=== PATIENT | female | born 2000 ===

== ENCOUNTER 2020-08-29 18:19 | Inpatient (IN) | payer MEDICAID ==
[2020-08-29] MEDS ORDERED: ONDANSETRON 4 MG/2 ML INJ IM ONE (19:36)
[2020-08-29] MEDS ORDERED: FAMOTIDINE 20 MG TAB PO ONE (19:37)
[2020-08-29] MEDS ORDERED: ALUM-MAG HYDROXIDE-SIMETHICONE 200-200-20MG/5ML ORAL LIQD 30 ML PO ONE (19:37)
[2020-08-29] MEDS ORDERED: HYOSCYAMINE SUBL 0.125 MG TAB SL ONE (20:09)
[2020-08-29] MEDS ORDERED: SODIUM CHLORIDE 0.9% 1000 ML 1,000 ML IV ONE (20:28)
[2020-08-29 20:48] LABS: Hematocrit 41.5 % (30.3-42.9); Hemoglobin 13.9 gm/dl (10.1-14.3); Mean Corpuscular HGB Conc 34 % (30-34); Mean Corpuscular Volume 88 fl (79-97); Platelet Count 368 K/mm3 (140-440); Red Blood Count 4.71 M/mm3 (3.65-5.03); Red Cell Distribution Width 14.1 % (13.2-15.2)
[2020-08-29] MEDS ORDERED: MORPHINE 4 MG/1 ML INJ ONE (21:00)
[2020-08-29] MEDS ORDERED: MORPHINE 4 MG/1 ML INJ IV ONE (21:00)
[2020-08-29 21:07] LABS: Alanine Aminotransferase 13 units/L (7-56); Albumin 4.7 g/dL (3.9-5); Blood Urea Nitrogen 9 mg/dL (7-17); Calcium 9.2 mg/dL (8.4-10.2); Hemolysis Index 8
[2020-08-29 21:10] LABS: BUN/Creatinine Ratio 15
--- NOTE | 2020-08-29 22:16 | Emergency Department Report ---
ED Abdominal Pain HPI - General Chief Complaint: Abdominal Pain Stated Complaint: ABD PAIN Time Seen by Provider: 08/29/20 19:36 Source: patient Mode of arrival: Ambulatory Limitations: No Limitations - History of Present Illness Initial Comments: pt is a 19 yo female who presents to the ED with c/o epigastric abd pain that began at 8 AM this morning. she has associated n/v. she states she has had multiple episodes of vomiting. she states she also has a burning sensation in her epigastric region. she states she had a normal BM today. she denies any fever, diarrhea, urinary symptoms, abnormal vaginal discharge. pmhx none. no allergies to meds. Severity scale (0 -10): 1 - Related Data Allergies Allergy/AdvReac Type Severity Reaction Status Date / Time No Known Allergies Allergy Unverified 08/29/20 20:48 ED Review of Systems ROS: Stated complaint: ABD PAIN Other details as noted in HPI ED Past Medical Hx - Past Medical History Previous Medical History?: Yes Hx Asthma: Yes Additional medical history: Obesity. Genital Herpes - Surgical History Past Surgical History?: Yes Additional Surgical History: Tonsiletomy - Social History Smoking Status: Never Smoker Substance Use Type: Marijuana ED Physical Exam - General Limitations: No Limitations ED Course Vital Signs 08/29/20 08/29/20 08/29/20 19:31 22:35 22:52 Temperature 98.5 F 98.1 F Pulse Rate 69 70 70 Respiratory 18 18 17 Rate Blood Pressure 135/94 134/81 Blood Pressure 134/81 [Left] O2 Sat by Pulse 100 100 100 Oximetry - Consultations Consultation #1: 08/30/20 23:[address] Walker, general surgery, advised to give patient Levaquin or Zosyn, advised to make n.p.o. and he will consult on patient 08/30/20 23:[address] Lambert, hospitalist will accept and resume care of patient, will admit patient to hospital service, advised to bridge patient to the surgical unit ED Medical Decision Making - Lab Data Result diagrams: 08/29/20 19:36 08/29/20 20:28 Lab Results 08/29/20 08/29/20 08/29/20 Range/Units 19:36 20:28 20:31 WBC 17.5 H (4.5-11.0) K/mm3 RBC 4.71 (3.65-5.03) M/mm3 Hgb 13.9 (10.1-14.3) gm/dl Hct 41.5 (30.3-42.9) % MCV 88 (79-97) fl MCH 30 (28-32) pg MCHC 34 (30-34) % RDW 14.1 (13.2-15.2) % Plt Count 368 (140-440) K/mm3 Add Manual Diff Complete Total Counted 100 Seg Neutrophils % Service Employee Lymphocytes % (Manual) 3.0 L (13.4-35.0) % Monocytes % (Manual) 2.0 (0.0-7.3) % Nucleated RBC % Not Reportable Seg Neutrophils # Man 16.6 H (1.8-7.7) K/mm3 Band Neutrophils # 0.0 K/mm3 Lymphocytes # (Manual) 0.5 L (1.2-5.4) K/mm3 Abs React Lymphs (Man) 0.0 K/mm3 Monocytes # (Manual) 0.4 (0.0-0.8) K/mm3 Eosinophils # (Manual) 0.0 (0.0-0.4) K/mm3 Basophils # (Manual) 0.0 (0.0-0.1) K/mm3 Metamyelocytes # 0.0 K/mm3 Myelocytes # 0.0 K/mm3 Promyelocytes # 0.0 K/mm3 Blast Cells # 0.0 K/mm3 WBC Morphology Not Reportable Hypersegmented Neuts Not Reportable Hyposegmented Neuts Not Reportable Hypogranular Neuts Not Reportable Smudge Cells Not Reportable Toxic Granulation Not Reportable Toxic Vacuolation Not Reportable Dohle Bodies Not Reportable Pelger-Huet Anomaly Not Reportable Tristan Rods Not Reportable Platelet Estimate Consistent w auto Clumped Platelets Not Reportable Plt Clumps, EDTA Not Reportable Large Platelets Not Reportable Giant Platelets Not Reportable Platelet Satelliting Not Reportable Plt Morphology Comment Not Reportable RBC Morphology Normal Dimorphic RBCs Not Reportable Polychromasia Not Reportable Hypochromasia Not Reportable Poikilocytosis Not Reportable Anisocytosis Not Reportable Microcytosis Not Reportable Macrocytosis Not Reportable Spherocytes Not Reportable Pappenheimer Bodies Not Reportable Sickle Cells Not Reportable Target Cells Not Reportable Tear Drop Cells Not Reportable Ovalocytes Not Reportable Helmet Cells Not Reportable [place] Bodies Not Reportable [place] Rings Not Reportable [place] Cells Not Reportable Bite Cells Not Reportable Crenated Cell Not Reportable Elliptocytes Not Reportable Acanthocytes (Spur) Not Reportable Rouleaux Not Reportable Hemoglobin C Crystals Not Reportable Schistocytes Not Reportable Malaria parasites Not Reportable Anand Bodies Not Reportable Hem Pathologist Commnt No Sodium 136 L (137-145) mmol/L Potassium 3.7 (3.6-5.0) mmol/L Chloride 102.1 (98-107) mmol/L Carbon Dioxide 23 (22-30) mmol/L Anion Gap 15 mmol/L BUN 9 (7-17) mg/dL Creatinine 0.6 (0.6-1.2) mg/dL Estimated GFR > 60 ml/min BUN/Creatinine Ratio 15 % Glucose 122 H (65-100) mg/dL Calcium 9.2 (8.4-10.2) mg/dL Total Bilirubin 0.50 (0.1-1.2) mg/dL AST 15 (5-40) units/L ALT 13 (7-56) units/L Alkaline Phosphatase 100 (35-129) units/L Total Protein 7.5 (6.3-8.2) g/dL Albumin 4.7 (3.9-5) g/dL Albumin/Globulin Ratio 1.7 % Lipase 16 (13-60) units/L HCG, Qual Negative (Negative) - Radiology Data Radiology results: report reviewed Ordering Physician: ANGELLA STATON Date of Service: 08/29/20 Procedure(s): CT abdomen pelvis w con Accession Number(s): [id number] cc: ANGELLA STATON CT ABDOMEN AND PELVIS WITH CONTRAST INDICATION / CLINICAL INFORMATION: epigastric abd pain, n/v, leukocytosis. TECHNIQUE: Axial CT images were obtained through the abdomen and pelvis after 100 cc of Omnipaque [address] scans at this location are performed using CT dose reduction for ALARA by means of automated exposure control. COMPARISON: None available. FINDINGS: LOWER CHEST: No significant abnormality. LIVER: No significant abnormality. GALLBLADDER: No significant abnormality. BILE DUCTS: No significant abnormality. PANCREAS: No significant abnormality. SPLEEN: No significant abnormality. ADRENALS: No significant abnormality. RIGHT KIDNEY and URETER: No significant abnormality. LEFT KIDNEY and URETER: No significant abnormality. STOMACH and SMALL BOWEL: No significant abnormality. COLON: There is wall thickening in the colon. APPENDIX: The appendix is abnormal in appearance. The appendix is enlarged and fluid-filled and there is an appendicolith. There is mild periappendiceal inflammation. Findings are characteristic of appendicitis. PERITONEUM: No free fluid. No free air. No fluid collection. LYMPH NODES: No significant adenopathy. AORTA and ARTERIES: No significant abnormality. IVC and VEINS: No significant abnormality. URINARY BLADDER: No significant abnormality. REPRODUCTIVE ORGANS: No significant abnormality. ADDITIONAL FINDINGS: None. SKELETAL SYSTEM: No acute abnormality. IMPRESSION: 1. The appendix is abnormal in appearance. It is enlarged and fluid-filled and there are appendicoliths. There is some mild stranding in the fat adjacent to the appendix. The appearance is characteristic of appendicitis. 2. In addition, there is wall thickening noted in the right transverse left proximal sigmoid colon suggesting colitis. Signer Name: Luis Fernando Benton MD Signed: 08/29/2020 10:35 PM Workstation Name: [id number] Transcribed By: SS Dictated By: Luis Fernando Benton MD Electronically Authenticated By: Luis Fernando Benton MD Signed Date/Time: 08/29/202234 DD/ 29 TD/TT: - Medical Decision Making pt is a 19 yo female who presents to the ED with c/o epigastric abd pain that began at 8 AM this morning. she has associated n/v. she states she has had multiple episodes of vomiting. she states she also has a burning sensation in her epigastric region. she states she had a normal BM today. she denies any fever, diarrhea, urinary symptoms, abnormal vaginal discharge. pmhx none. no allergies to meds. Vitals are normal. On exam patient has epigastric tenderness palpation. Labs show elevated white blood cell count at 17,000. CT abdomen pelvis with IV contrast: 1. The appendix is abnormal in appearance. It is enlarged and fluid-filled and there are appendicoliths. There is some mild stranding in the fat adjacent to the appendix. The appearance is characteristic of appendicitis. 2. In addition, there is wall thickening noted in the right transverse left proximal sigmoid colon suggesting colitis. Patient given morphine for pain but began having pain again, patient given IV Dilaudid and pain has significantly improved. Originally pain was just in the epigastric region, now she is also having tenderness to palpation in the bilateral lower quadrants. Spoke with Dr. Walker, general surgery, advised to give patient Levaquin or Zosyn, advised to make n.p.o. and he will consult on patient. Discussed case with Dr. Lambert, hospitalist will accept and resume care of patient, will admit patient to hospital service, advised to bridge patient to the surgical unit. Dr. Dalal, ER attending agreeable with plan. pt given IV zosyn and admitted. - Differential Diagnosis Pancreatitis, cholecystitis, cholelithiasis, PUD, GERD, colitis, obstructio Critical care attestation.: If time is entered above; I have spent that time in minutes in the direct care of this critically ill patient, excluding procedure time. ED Disposition Clinical Impression: Colitis Abdominal pain Qualifiers: Abdominal location: epigastric Qualified Code(s): R10.13 - Epigastric pain Nausea & vomiting Qualifiers: Vomiting type: unspecified Vomiting Intractability: non-intractable Qualified Code(s): R11.2 - Nausea with vomiting, unspecified Leukocytosis Qualifiers: Leukocytosis type: unspecified Qualified Code(s): D72.829 - Elevated white blood cell count, unspecified Appendicitis Qualifiers: Appendicitis type: acute appendicitis Acute appendicitis type: with localized peritonitis Appendicitis gangrene presence: without gangrene Appendicitis perforation presence: without perforation Appendicitis abscess presence: without abscess Qualified Code(s): K35.30 - Acute appendicitis with localized peritonitis, without perforation or gangrene Disposition: OP ADMIT IP TO THIS HOSP Is pt being admited?: Yes Does the pt Need Aspirin: No Condition: Fair Time of Disposition: 23:22
--- NOTE | 2020-08-29 22:40 | Cat Scan Report ---
CT ABDOMEN AND PELVIS WITH CONTRAST INDICATION / CLINICAL INFORMATION: epigastric abd pain, n/v, leukocytosis. TECHNIQUE: Axial CT images were obtained through the abdomen and pelvis after 100 cc of Omnipaque [address] scans at this location are performed using CT dose reduction for ALARA by means of automat ed exposure control. COMPARISON: None available. FINDINGS: LOWER CHEST: No significant abnormality. LIVER: No significant abnormality. GALLBLADDER: No significant abnormality. BILE DUCTS: No significant abnormality. PANCREAS: No significant abnormality. SPLEEN: No significant abnormality. ADRENALS: No significant abnormality. RIGHT KIDNEY and URETER: No significant abnormality. LEFT KIDNEY and URETER: No significant abnormality. STOMACH and SMALL BOWEL: No significant abnormality. COLON: There is wall thickening in the colon. APPENDIX: The appendix is abnormal in appearance. The appendix is enlarged and fluid-filled and there is an appendicolith. There is mild periappendiceal inflammation. Findings are characteristic of appe ndicitis. PERITONEUM: No free fluid. No free air. No fluid collection. LYMPH NODES: No significant adenopathy. AORTA and ARTERIES: No significant abnormality. IVC and VEINS: No significant abnormality. URINARY BLADDER: No significant abnormality. REPRODUCTIVE ORGANS: No significant abnormality. ADDITIONAL FINDINGS: None. SKELETAL SYSTEM: No acute abnormality. IMPRESSION: 1. The appendix is abnormal in appearance. It is enlarged and fluid-filled and there are appendicolit hs. There is some mild stranding in the fat adjacent to the appendix. The appearance is characteristi c of appendicitis. 2. In addition, there is wall thickening noted in the right transverse left proximal sigmoid colon orellana ggesting colitis. Signer Name: Luis Fernando Benton MD Signed: 08/29/2020 10:35 PM Workstation Name: [id number]
[2020-08-29 22:48] LABS: Total Cells Counted 100
[2020-08-29 22:49] LABS: Platelet Estimate Consistent w Auto; RBC Morphology Normal
[2020-08-29] MEDS ORDERED: PIPERACIL/TAZOBACTA 4.5/NS 100 4.5 GM/100 ML VIAL IV ONE (22:51)
[2020-08-29] MEDS ORDERED: HYDROmorphone 1 MG/1 ML INJ ONE (22:55)
[2020-08-29] MEDS ORDERED: HYDROmorphone 1 MG/1 ML INJ IV ONE (22:58)
[2020-08-30] MEDS ORDERED: ACETAMINOPHEN 325 MG TAB PO PRN (00:27)
[2020-08-30] MEDS ORDERED: ONDANSETRON 4 MG/2 ML INJ IV PRN (00:27)
--- NOTE | 2020-08-30 00:36 | History and Physical Report ---
History of Present Illness Date of examination: 08/29/20 Date of admission: 08/29/20 23:23 Chief complaint: Abdominal Pain History of present illness: 19 year old while female seen in the ER complaining of abdominal pain. Abdominal pain was said to have started early this morning. Pain was more in the epigastric region initially and later radiated to the right lower abdomen. No known relieving or exacerbating factor. She denies any fever, no chills.No chest pain or shortness of breath. Denies any hematuria and dysuria. Work -up in the Emergency room :The appendix is abnormal in appearance. It is enlarged and fluid-filled and there are appendicoliths. There is some mild stranding in the fat adjacent to the appendix. The appearance is characteristic of appendicitis. In addition, there is wall thickening noted in the right transverse left proximal sigmoid colon suggesting colitis. Labs reveals leucocytosis of 17.5 Patient is being admitted for appendicitis . General surgeon - Dr. Walker was notified by the ER physician. Past History Past Medical History: other (Asthma, H/O Genital herpes) Past Surgical History: No surgical history Social history: other (Smokes Marijuana Occasionally) Family history: no significant family history Medications and Allergies Allergies Allergy/AdvReac Type Severity Reaction Status Date / Time No Known Allergies Allergy Unverified 08/29/20 20:48 Home Medications Medication Instructions Recorded Confirmed Last Taken Type No Known Home Medications [No 08/30/20 08/30/20 Unknown History Reported Home Medications] Active Meds: Active Medications Acetaminophen (Acetaminophen 325 Mg Tab) 650 mg PO Q4H PRN PRN Reason: Pain MILD(1-3)/Fever >100.5/SKAGGS Ondansetron HCl (Ondansetron 4 Mg/2 Ml Inj) 4 mg IV Q8H PRN PRN Reason: Nausea And Vomiting Sodium Chloride (Sodium Chloride 0.9% 10 Ml Flush Syringe) 10 ml IV BID ALICIA Sodium Chloride (Sodium Chloride 0.9% 10 Ml Flush Syringe) 10 ml IV PRN PRN PRN Reason: LINE FLUSH Review of Systems Constitutional: no fever, no chills Ears, nose, mouth and throat: no nasal congestion, no sore throat Cardiovascular: no chest pain, no palpitations Respiratory: no cough, no shortness of breath Gastrointestinal: abdominal pain, nausea, vomiting, no hematemesis Genitourinary Female: no pelvic pain, no flank pain, no dysuria, no hematuria Musculoskeletal: no neck pain, no low back pain Integumentary: no rash, no pruritis Neurological: no headaches, no confusion Psychiatric: no anxiety, no depression Exam - Constitutional Vitals: Temp Pulse Resp BP Pulse Ox 97.8 F 96 H 20 166/86 96 08/30/20 00:09 08/30/20 00:09 08/30/20 00:09 08/30/20 00:09 08/30/20 00:09 General appearance: Present: no acute distress, well-nourished, obese - EENT Eyes: Present: PERRL, EOM intact. Absent: scleral icterus ENT: hearing intact, clear oral mucosa, dentition normal - Neck Neck: Present: supple, normal ROM - Respiratory Respiratory effort: normal Respiratory: bilateral: CTA - Cardiovascular Rhythm: regular Heart Sounds: Present: S1 & S2. Absent: gallop, systolic murmur, diastolic murmur, rub, click - Extremities Extremities: no ischemia, pulses intact, pulses symmetrical, No edema, normal temperature, normal color, Full ROM Peripheral Pulses: within normal limits - Abdominal General gastrointestinal: Present: soft, tender (Right lower quadrant , Minimal guarding ,no rebound tenderness.), non-distended, normal bowel sounds. Absent: mass - Integumentary Integumentary: Present: clear, warm, dry. Absent: rash - Musculoskeletal Musculoskeletal: strength equal bilaterally - Psychiatric Psychiatric: appropriate mood/affect, intact judgment & insight, memory intact, cooperative - Neurologic Neurologic: CNII-XII intact, no focal deficits, moves all extremities Results - Labs CBC & Chem 7: 08/29/20 19:36 08/29/20 20:28 Labs: Abnormal lab results 08/29/20 08/29/20 Range/Units 19:36 20:28 WBC 17.5 H (4.5-11.0) K/mm3 Lymphocytes % (Manual) 3.0 L (13.4-35.0) % Seg Neutrophils # Man 16.6 H (1.8-7.7) K/mm3 Lymphocytes # (Manual) 0.5 L (1.2-5.4) K/mm3 Sodium 136 L (137-145) mmol/L Glucose 122 H (65-100) mg/dL Assessment and Plan - Patient Problems (1) Appendicitis Current Visit: Yes Status: Acute Qualifiers: Appendicitis type: acute appendicitis Acute appendicitis type: with localized peritonitis Appendicitis gangrene presence: without gangrene Appendicitis perforation presence: without perforation Appendicitis abscess presence: without abscess Qualified Code(s): K35.30 - Acute appendicitis with localized peritonitis, without perforation or gangrene Plan to address problem: Patient made NPO . Placed on empiric IV antibiotics. Consult placed to General surgeon for evaluation. Dr.Ronald Walker notified. (2) Abdominal pain Current Visit: Yes Status: Acute Qualifiers: Abdominal location: epigastric Qualified Code(s): R10.13 - Epigastric pain Plan to address problem: Secondary to the Appendicits. Continue on IV analgesic medication (3) Nausea & vomiting Current Visit: Yes Status: Acute Qualifiers: Vomiting type: unspecified Vomiting Intractability: non-intractable Qualified Code(s): R11.2 - Nausea with vomiting, unspecified Plan to address problem: Patient placed on IV Zofran as needed. (4) DVT prophylaxis Current Visit: Yes Status: Acute Plan to address problem: Patient placed on sequential compression device (5) Full code status Current Visit: Yes Status: Acute Plan to address problem: Patient is Full code
[2020-08-30] MEDS: HYDROmorphone 1 MG/1 ML INJ IV PRN ×5 (00:54→20:51)
[2020-08-30] MEDS: SODIUM CHLORIDE 0.9% 1000 ML 1,000 ML IV SCH ×2 (01:04→17:54)
[2020-08-30] MEDS ORDERED: HYDROmorphone 1 MG/1 ML INJ IV ONE (01:29)
[2020-08-30] MEDS: HYDROmorphone 1 MG/1 ML INJ IV ONE ×2 (02:15→02:17)
[2020-08-30] MEDS ORDERED: LORazepam 2 MG/ML VIAL IV ONE (02:55)
[2020-08-30] MEDS: PIPERACIL/TAZOBACTA 4.5/NS 100 4.5 GM/100 ML VIAL IV SCH ×3 (05:50→22:00)
[2020-08-30] MEDS: ACETAMINOPHEN 325 MG TAB PO PRN ×2 (06:04→21:12)
--- NOTE | 2020-08-30 07:58 | Progress Note ---
Assessment and Plan Assessment and plan: (1) Appendicitis Current Visit: Yes Status: Acute Qualifiers: Appendicitis type: acute appendicitis Acute appendicitis type: with localized peritonitis Appendicitis gangrene presence: without gangrene Appendicitis perforation presence: without perforation Appendicitis abscess presence: without abscess Qualified Code(s): K35.30 - Acute appendicitis with localized peritonitis, without perforation or gangrene Plan to address problem: Patient made NPO . Placed on empiric IV antibiotics. Consult placed to General surgeon for evaluation. Dr.Ronald Walker notified. Sepsis due to appendicitis -Evidenced by fever, tachycardia and leukocytosis -Patient is on Zosyn (2) Abdominal pain Current Visit: Yes Status: Acute Qualifiers: Abdominal location: epigastric Qualified Code(s): R10.13 - Epigastric pain Plan to address problem: Secondary to the Appendicits. Continue on IV analgesic medication (3) Nausea & vomiting Current Visit: Yes Status: Acute Qualifiers: Vomiting type: unspecified Vomiting Intractability: non-intractable Qualified Code(s): R11.2 - Nausea with vomiting, unspecified Plan to address problem: Patient placed on IV Zofran as needed. (4) DVT prophylaxis Current Visit: Yes Status: Acute Plan to address problem: Patient placed on sequential compression device (5) Full code status Current Visit: Yes Status: Acute Plan to address problem: Patient is Full code 08/30/2020 -Patient is on IV Zosyn for appendicitis and sepsis -Dr. Walker consulted in the emergency department -We will going to follow with general surgery -Symptomatic treatment for abdominal pain nausea and vomiting, until definitive treatment by general surgery -Patient had appendectomy this morning by Dr. Walker and his note stated that patient has infected peritoneal fluid, culture and sensitivity sent to lab. History Interval history: Patient was seen and evaluated this morning Patient admitted for appendicitis Hospitalist Physical - Physical exam Narrative exam: Not in cardiopulmonary distress. The patient appeared well nourished and normally developed. Vital signs as documented. Head exam is unremarkable. No scleral icterus . Neck is without jugular venous distension, thyromegaly, or carotid bruits. Lungs are clear to auscultation. Cardiac exam reveals regular rate and Rhythm. Abdominal exam reveals right lower quadrant pain, no guarding or rigidity. Extremities are nonedematous and both femoral and pedal pulses are normal. 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 No focal weakness. - Constitutional Vitals: Temp Pulse Resp BP Pulse Ox 100.7 F H 129 H 18 120/50 99 08/30/20 04:43 08/30/20 04:43 08/30/20 04:43 08/30/20 04:43 08/30/20 04:43 General appearance: Present: no acute distress, well-nourished, obese Results - Labs CBC & Chem 7: 08/29/20 19:36 08/29/20 20:28 Labs: Laboratory Last Values WBC 17.5 K/mm3 (4.5-11.0) H 08/29/20 19:36 RBC 4.71 M/mm3 (3.65-5.03) 08/29/20 19:36 Hgb 13.9 gm/dl (10.1-14.3) 08/29/20 19:36 Hct 41.5 % (30.3-42.9) 08/29/20 19:36 MCV 88 fl (79-97) 08/29/20 19:36 MCH 30 pg (28-32) 08/29/20 19:36 MCHC 34 % (30-34) 08/29/20 19:36 RDW 14.1 % (13.2-15.2) 08/29/20 19:36 Plt Count 368 K/mm3 (140-440) 08/29/20 19:36 Add Manual Diff Complete 08/29/20 19:36 Total Counted 100 08/29/20 19:36 Seg Neutrophils % Batch Freezer 08/29/20 19:36 Lymphocytes % (Manual) 3.0 % (13.4-35.0) L 08/29/20 19:36 Monocytes % (Manual) 2.0 % (0.0-7.3) 08/29/20 19:36 Nucleated RBC % Not Reportable 08/29/20 19:36 Seg Neutrophils # Man 16.6 K/mm3 (1.8-7.7) H 08/29/20 19:36 Band Neutrophils # 0.0 K/mm3 08/29/20 19:36 Lymphocytes # (Manual) 0.5 K/mm3 (1.2-5.4) L 08/29/20 19:36 Abs React Lymphs (Man) 0.0 K/mm3 08/29/20 19:36 Monocytes # (Manual) 0.4 K/mm3 (0.0-0.8) 08/29/20 19:36 Eosinophils # (Manual) 0.0 K/mm3 (0.0-0.4) 08/29/20 19:36 Basophils # (Manual) 0.0 K/mm3 (0.0-0.1) 08/29/20 19:36 Metamyelocytes # 0.0 K/mm3 08/29/20 19:36 Myelocytes # 0.0 K/mm3 08/29/20 19:36 Promyelocytes # 0.0 K/mm3 08/29/20 19:36 Blast Cells # 0.0 K/mm3 08/29/20 19:36 WBC Morphology Not Reportable 08/29/20 19:36 Hypersegmented Neuts Not Reportable 08/29/20 19:36 Hyposegmented Neuts Not Reportable 08/29/20 19:36 Hypogranular Neuts Not Reportable 08/29/20 19:36 Smudge Cells Not Reportable 08/29/20 19:36 Toxic Granulation Not Reportable 08/29/20 19:36 Toxic Vacuolation Not Reportable 08/29/20 19:36 Dohle Bodies Not Reportable 08/29/20 19:36 Pelger-Huet Anomaly Not Reportable 08/29/20 19:36 Tristan Rods Not Reportable 08/29/20 19:36 Platelet Estimate Consistent w auto 08/29/20 19:36 Clumped Platelets Not Reportable 08/29/20 19:36 Plt Clumps, EDTA Not Reportable 08/29/20 19:36 Large Platelets Not Reportable 08/29/20 19:36 Giant Platelets Not Reportable 08/29/20 19:36 Platelet Satelliting Not Reportable 08/29/20 19:36 Plt Morphology Comment Not Reportable 08/29/20 19:36 RBC Morphology Normal 08/29/20 19:36 Dimorphic RBCs Not Reportable 08/29/20 19:36 Polychromasia Not Reportable 08/29/20 19:36 Hypochromasia Not Reportable 08/29/20 19:36 Poikilocytosis Not Reportable 08/29/20 19:36 Anisocytosis Not Reportable 08/29/20 19:36 Microcytosis Not Reportable 08/29/20 19:36 Macrocytosis Not Reportable 08/29/20 19:36 Spherocytes Not Reportable 08/29/20 19:36 Pappenheimer Bodies Not Reportable 08/29/20 19:36 Sickle Cells Not Reportable 08/29/20 19:36 Target Cells Not Reportable 08/29/20 19:36 Tear Drop Cells Not Reportable 08/29/20 19:36 Ovalocytes Not Reportable 08/29/20 19:36 Helmet Cells Not Reportable 08/29/20 19:36 [place] Bodies Not Reportable 08/29/20 19:36 [place] Rings Not Reportable 08/29/20 19:36 [place] Cells Not Reportable 08/29/20 19:36 Bite Cells Not Reportable 08/29/20 19:36 Crenated Cell Not Reportable 08/29/20 19:36 Elliptocytes Not Reportable 08/29/20 19:36 Acanthocytes (Spur) Not Reportable 08/29/20 19:36 Rouleaux Not Reportable 08/29/20 19:36 Hemoglobin C Crystals Not Reportable 08/29/20 19:36 Schistocytes Not Reportable 08/29/20 19:36 Malaria parasites Not Reportable 08/29/20 19:36 Anand Bodies Not Reportable 08/29/20 19:36 Hem Pathologist Commnt No 08/29/20 19:36 Sodium 136 mmol/L (137-145) L 08/29/20 20:28 Potassium 3.7 mmol/L (3.6-5.0) 08/29/20 20:28 Chloride 102.1 mmol/L (98-107) 08/29/20 20:28 Carbon Dioxide 23 mmol/L (22-30) 08/29/20 20:28 Anion Gap 15 mmol/L 08/29/20 20:28 BUN 9 mg/dL (7-17) 08/29/20 20:28 Creatinine 0.6 mg/dL (0.6-1.2) 08/29/20 20:28 Estimated GFR > 60 ml/min 08/29/20 20:28 BUN/Creatinine Ratio 15 % 08/29/20 20:28 Glucose 122 mg/dL (65-100) H 08/29/20 20:28 Calcium 9.2 mg/dL (8.4-10.2) 08/29/20 20:28 Total Bilirubin 0.50 mg/dL (0.1-1.2) 08/29/20 20:28 AST 15 units/L (5-40) 08/29/20 20:28 ALT 13 units/L (7-56) 08/29/20 20:28 Alkaline Phosphatase 100 units/L (35-129) 08/29/20 20:28 Total Protein 7.5 g/dL (6.3-8.2) 08/29/20 20:28 Albumin 4.7 g/dL (3.9-5) 08/29/20 20:28 Albumin/Globulin Ratio 1.7 % 08/29/20 20:28 Lipase 16 units/L (13-60) 08/29/20 20:28 HCG, Qual Negative (Negative) 08/29/20 20:31 Julio/IV: Voiding Method Toilet Active Medications - Current Medications Current Medications: Generic Name Dose Route Start Last Admin Trade Name Freq PRN Reason Stop Dose Admin Acetaminophen 650 mg 08/29/20 23:23 08/30/20 06:04 Acetaminophen 325 Mg Tab PO 650 mg Q4H PRN Administration Pain MILD(1-3)/Fever >100.5/SKAGGS Hydromorphone HCl 1 mg 08/30/20 00:27 08/30/20 03:05 Hydromorphone 1 Mg/1 Ml Inj IV 1 mg Q3H PRN Administration Pain , Severe (7-10) Sodium Chloride 1,000 mls @ 125 mls/hr 08/30/20 00:30 08/30/20 01:04 Nacl 0.9% 1000 Ml IV 125 mls/hr DIRECT ALICIA Administration Piperacillin Sod/Tazobactam Sod 4.5 gm in 100 mls @ 200 mls/hr 08/30/20 06:00 08/30/20 05:50 Zosyn/Ns 4.5gm/100ml IV 200 mls/hr Q8HR ALICIA Administration Protocol Ondansetron HCl 4 mg 08/29/20 23:23 Ondansetron 4 Mg/2 Ml Inj IV Q8H PRN Nausea And Vomiting Sodium Chloride 10 ml 08/29/20 23:23 Sodium Chloride 0.9% 10 Ml Flush Syringe IV PRN PRN LINE FLUSH Sodium Chloride 10 ml 08/30/20 08:00 Sodium Chloride 0.9% 10 Ml Flush Syringe IV BID ALICIA
[2020-08-30] MEDS ORDERED: LIDOCAINE PF 100 MG/5 ML (CARDIAC SYRINGE) IV ONE (09:05)
[2020-08-30] MEDS ORDERED: propofoL 200 MG/20 ML VIAL IV ONE (09:05)
[2020-08-30] MEDS ORDERED: KETAMINE/STERILE WATER 50 MG/ML SYRINGE ONE (09:05)
[2020-08-30] MEDS ORDERED: fentaNYL 100 MCG/2 ML INJ ONE (09:05)
[2020-08-30] MEDS ORDERED: ROCURONIUM 50 MG/5 ML INJ IV ONE (09:07)
[2020-08-30] MEDS ORDERED: ONDANSETRON 4 MG/2 ML INJ ONE (09:07)
[2020-08-30] MEDS ORDERED: dexAMETHasone 20 MG/5 ML VIAL ONE (09:07)
[2020-08-30] MEDS ORDERED: CISATRACURIUM 10 MG/5 ML INJ IV ONE (09:14)
[2020-08-30] MEDS ORDERED: BUPIVACAINE-EPINEPHRINE/PF 0.5%-1:200,000 (10 ML) VIAL INFILTRATI ONE ×2 (09:16→10:32)
[2020-08-30] MEDS ORDERED: MIDAZOLAM 2 MG/2 ML INJ ONE (09:19)
[2020-08-30] MEDS ORDERED: NEOSTIGMINE 10MG/10 ML INJ MDV ONE (09:30)
[2020-08-30] MEDS ORDERED: GLYCOPYRROLATE 0.4 MG/2 ML INJ ONE (09:30)
[2020-08-30] MEDS ORDERED: PHENYLEPHRINE/NS 1,000 MCG/10 ML SYRINGE (OR USE) IV ONE (09:30)
--- NOTE | 2020-08-30 09:33 | Consultation ---
History of Present Illness Consult date: 08/30/20 Reason for consult: abdominal pain - History of present illness History of present illness: 19 yo female with 24 hour h/o epigastric pain which has now radiated to the RLQ. No fever, chills, precipitating, exacerbating or relieving factors. Pain is constant and has gotten progressively worse. Past History Past Medical History: other (Asthma, H/O Genital herpes) Past Surgical History: No surgical history Social history: other (Smokes Marijuana Occasionally) Family history: no significant family history Medications and Allergies Allergies Allergy/AdvReac Type Severity Reaction Status Date / Time No Known Allergies Allergy Unverified 08/29/20 20:48 Home Medications Medication Instructions Recorded Confirmed Last Taken Type No Known Home Medications [No 08/30/20 08/30/20 Unknown History Reported Home Medications] Active Meds: Active Medications Acetaminophen (Acetaminophen 325 Mg Tab) 650 mg PO Q4H PRN PRN Reason: Pain MILD(1-3)/Fever >100.5/SKAGGS Last Admin: 08/30/20 06:04 Dose: 650 mg Documented by: Hydromorphone HCl (Hydromorphone 1 Mg/1 Ml Inj) 1 mg IV Q3H PRN PRN Reason: Pain , Severe (7-10) Last Admin: 08/30/20 08:59 Dose: 1 mg Documented by: Sodium Chloride (Nacl 0.9% 1000 Ml) 1,000 mls @ 125 mls/hr IV DIRECT ALICIA Last Admin: 08/30/20 01:04 Dose: 125 mls/hr Documented by: Piperacillin Sod/Tazobactam Sod (Zosyn/Ns 4.5gm/100ml) 4.5 gm in 100 mls @ 200 mls/hr IV Q8HR ALICIA; Protocol Last Admin: 08/30/20 05:50 Dose: 200 mls/hr Documented by: Ondansetron HCl (Ondansetron 4 Mg/2 Ml Inj) 4 mg IV Q8H PRN PRN Reason: Nausea And Vomiting Sodium Chloride (Sodium Chloride 0.9% 10 Ml Flush Syringe) 10 ml IV PRN PRN PRN Reason: LINE FLUSH Sodium Chloride (Sodium Chloride 0.9% 10 Ml Flush Syringe) 10 ml IV BID ALICIA Last Admin: 08/30/20 08:24 Dose: Not Given Documented by: Review of Systems All systems: negative (none) Exam Vital Signs Temp Pulse Resp BP Pulse Ox 98.5 F 69 18 135/94 100 08/29/20 19:31 08/29/20 19:31 08/29/20 19:31 08/29/20 19:31 08/29/20 19:31 - General physical appearance Positive: well developed, well nourished, no distress - Eyes Positive: PERRL, normal occular movement - ENT Positive: normal pinna, normal nares, normal mucosa, no hearing loss, no congestion - Neck Positive: no masses, no bruits, trachea midline, no venous distension - Respiratory Positive: normal expansion, normal respiratory effort, clear to auscultation - Cardiovascular Rhythm: regular Heart Sounds: Present: S1 & S2. Absent: rub, click - Extremities Extremities: no ischemia, pulses symmetrical, No edema - Breasts Breasts: normal, no mass, no skin changes - Abdomen Abdomen: Present: soft, bowel sounds hypoactive, other (Moderately tender in the RLQ with mild guarding without rebound.). Absent: distended Hernia: none - Genitourinary Male Genitourinary: normal Female Genitourinary: normal - Integumentary no rash, no growths, no abnormal pigmentation - Neurologic Neurologic: alert and oriented to time, place and person, motor strength and sensation are grossly intact - Musculoskeletal normal gait, normal posture - Psychiatric Psychiatric: appropriate mood/affect, intact judgment & insight Results - Labs 08/29/20 19:36 08/29/20 20:28 Abnormal lab results 08/29/20 08/29/20 Range/Units 19:36 20:28 WBC 17.5 H (4.5-11.0) K/mm3 Lymphocytes % (Manual) 3.0 L (13.4-35.0) % Seg Neutrophils # Man 16.6 H (1.8-7.7) K/mm3 Lymphocytes # (Manual) 0.5 L (1.2-5.4) K/mm3 Sodium 136 L (137-145) mmol/L Glucose 122 H (65-100) mg/dL Diabetes panel 08/29/20 Range/Units 20:28 Sodium 136 L (137-145) mmol/L Potassium 3.7 (3.6-5.0) mmol/L Chloride 102.1 (98-107) mmol/L Carbon Dioxide 23 (22-30) mmol/L BUN 9 (7-17) mg/dL Creatinine 0.6 (0.6-1.2) mg/dL Glucose 122 H (65-100) mg/dL Calcium 9.2 (8.4-10.2) mg/dL AST 15 (5-40) units/L ALT 13 (7-56) units/L Alkaline Phosphatase 100 (35-129) units/L Total Protein 7.5 (6.3-8.2) g/dL Albumin 4.7 (3.9-5) g/dL Calcium panel 08/29/20 Range/Units 20:28 Calcium 9.2 (8.4-10.2) mg/dL Albumin 4.7 (3.9-5) g/dL Pituitary panel 08/29/20 Range/Units 20:28 Sodium 136 L (137-145) mmol/L Potassium 3.7 (3.6-5.0) mmol/L Chloride 102.1 (98-107) mmol/L Carbon Dioxide 23 (22-30) mmol/L BUN 9 (7-17) mg/dL Creatinine 0.6 (0.6-1.2) mg/dL Glucose 122 H (65-100) mg/dL Calcium 9.2 (8.4-10.2) mg/dL Adrenal panel 08/29/20 Range/Units 20:28 Sodium 136 L (137-145) mmol/L Potassium 3.7 (3.6-5.0) mmol/L Chloride 102.1 (98-107) mmol/L Carbon Dioxide 23 (22-30) mmol/L BUN 9 (7-17) mg/dL Creatinine 0.6 (0.6-1.2) mg/dL Glucose 122 H (65-100) mg/dL Calcium 9.2 (8.4-10.2) mg/dL Total Bilirubin 0.50 (0.1-1.2) mg/dL AST 15 (5-40) units/L ALT 13 (7-56) units/L Alkaline Phosphatase 100 (35-129) units/L Total Protein 7.5 (6.3-8.2) g/dL Albumin 4.7 (3.9-5) g/dL - Imaging CT scan - abdomen: report reviewed CT scan - pelvis: report reviewed Additional studies: Urine is negative. Assessment and Plan - Patient Problems (1) Appendicitis Current Visit: Yes Status: Acute Qualifiers: Appendicitis type: acute appendicitis Acute appendicitis type: with localized peritonitis Appendicitis gangrene presence: without gangrene A ppendicitis perforation presence: without perforation Appendicitis abscess presence: without abscess Qualified Code(s): K35.30 - Acute appendicitis with localized peritonitis, without perforation or gangrene Plan to address problem: 1) IV Zosyn 2) NPO 3) To OR for laparoscopic appendectomy
--- NOTE | 2020-08-30 09:35 | Anesthesia Consultation ---
Anesthesia Consult and Med Hx Date of service: 08/30/20 - Airway Anesthetic Teeth Evaluation: Good ROM Head & Neck: Adequate Mental/Hyoid Distance: Adequate Mallampati Class: Class III Intubation Access Assessment: Possibly Difficult - Pre-Operative Health Status ASA Pre-Surgery Classification: ASA3 Proposed Anesthetic Plan: General - Pulmonary Hx Smoking: No Hx Asthma: Yes Hx Respiratory Symptoms: No SOB: No COPD: No Home Oxygen Therapy: No Hx Pneumonia: No Hx Sleep Apnea: Yes - Cardiovascular System Hx Hypertension: No Hx Coronary Artery Disease: No Hx Heart Attack/AMI: No Hx Angina: No Hx Percutaneous Transluminal Coronary Angioplasty (PTCA): No Hx Cardia Arrhythmia: No Hx Pacemaker: No Hx Internal Defibrillator: No Hx Valvular Heart Disease: No Hx Heart Murmur: No Hx Peripheral Vascular Disease: No - Central Nervous System Hx Neuromuscular Disorder: No Hx Seizures: No CVA: No Hx Back Pain: Yes Hx Psychiatric Problems: Yes (PTSD/Depression/Anexity) - Gastrointestinal Hx Ulcer: No Hx Gastroesophageal Reflux Disease: Yes - Endocrine Hx Renal Disease: No Hx End Stage Renal Disease: No Hx Cirrhosis: No Hx Liver Disease: No Hx Insulin Dependent Diabetes: No Hx Non-Insulin Dependent Diabetes: No Hx Thyroid Disease: No Hx Hypothyroidism: No Hx Hyperthyroidism: No - Hematic Hx Anemia: No Hx Sickle Cell Disease: No - Other Systems Hx Alcohol Use: Yes (occ.) Hx Substance Use: Yes (marijuana) Hx Cancer: No Hx Obesity: Yes
--- NOTE | 2020-08-30 09:36 | Anesthesia Day of Surgery ---
Anesthesia Day of Surgery - Day of Surgery Patient Examined: Yes Patient H&P Reviewed: Yes Patient is NPO: Yes
[2020-08-30] MEDS ORDERED: ePHEDrine SULFATE 50 MG/1 ML INJ ONE (09:53)
[2020-08-30] MEDS ORDERED: SODIUM CHLORIDE 0.9% IRR 1,500 ML BOTTLE IR ONE (10:33)
[2020-08-30] MEDS ORDERED: SODIUM CHLORIDE 0.9% IRRIG SOLN 2000 ML IR ONE (10:36)
[2020-08-30] MEDS ORDERED: HYDROmorphone 1 MG/1 ML INJ ONE (11:21)
--- NOTE | 2020-08-30 11:25 | Procedure Note ---
Date of procedure: 08/30/20 Pre-op diagnosis: acute appendicitis Post-op diagnosis: same (with perforation) Procedure: Laparoscopic appendectomy Description of procedure: Pt was placed supine on the OR table. General anesthesia was administered. Abdomen was prepped and draped. Proposed trocar sites were infiltrated with 7 ml of 0.5% Marcaine. A small infraumbilical incision was made, linea alba incised and the peritoneal cavity carefully entered. A Latisha port was inserted into the peritoneal cavity and pneumoperitoneum established. Two 5 mm ports were placed in the midline of the suprapubic area and laterally in the mid-portion of the LLQ. This was performed under direct vision without incident. Pt was placed in a Trendelenburg position with her right side rotated upward. There was seropurulent fluid throughout the lower abdomen and the uterus, right colon and RLQ small bowel were moderately inflammed. Appendix was located and appeared gangrenous and inflamed although now gross site of perforation could be identified. Mesoappendix was divided with the Ligasure until the base of the appendix was freed up. The appendiceal base was then stapled with a blue load of the endo-OSMAN. The appendix was placed in an endobag and the endobag removed via the pt's infraumbilical fascial defect. The Latisha port was replaced and pneumoperitoneum re-established. Purulent intraperitoneal fluid was collected for C&S and all easily accessible intraperitoneal fluid was aspirated. The 5 mm ports were removed without bleeding identified from the port entry sites under low pressure. The infraumbilical fascial defect was closed with 2 interrupted sutures of 0-Vicryl. Skin incisions were each closed with a single simple suture of 4-0 Nylon with the infraumbilical wound packed with saline moistened gauze on both sides of the single suture. Sterile absorbent dressings were applied. Pt tolerated the procedure well. Pt was taken to PACU in stable condition. Anesthesia: GETA Surgeon: CORY LUNDBERG Estimated blood loss: minimal Pathology: list (1) Appendix 2) C&S of infected intra-peritoneal fluid) Specimen disposition: to lab Condition: stable Disposition: PACU
[2020-08-30] MEDS ORDERED: metroNIDAZOLE/NS 500 MG/100 ML 500 MG/100 ML BAG IV ONE (11:26)
--- NOTE | 2020-08-30 12:04 | Post Anesthesia Evaluation ---
- Post Anesthesia Evaluation Patient Participated: Yes Airway Patent: Yes Stable Respiratory Function: Yes Nausea/Vomiting: No Temp > 96.8F: Yes Pain Manageable: Yes Adequeate Hydration: Yes Anesthesia Complications: No Block Receding Appropriately: Not Applicable Patient on Ventilator: No Other Comments: pt a+o x 3. no distress noted. denies pain. resting comfortable. vitals stable.
[2020-08-30] MEDS: metroNIDAZOLE/NS 500 MG/100 ML 500 MG/100 ML BAG IV SCH ×2 (12:59→20:56)
[2020-08-30] MEDS: ONDANSETRON 4 MG/2 ML INJ IV PRN (20:51)
[2020-08-31] MEDS: SODIUM CHLORIDE 0.9% 1000 ML 1,000 ML IV SCH ×2 (03:12→20:48)
[2020-08-31] MEDS: metroNIDAZOLE/NS 500 MG/100 ML 500 MG/100 ML BAG IV SCH ×2 (03:12→12:09)
[2020-08-31] MEDS: ONDANSETRON 4 MG/2 ML INJ IV PRN ×3 (05:49→16:30)
[2020-08-31] MEDS: PIPERACIL/TAZOBACTA 4.5/NS 100 4.5 GM/100 ML VIAL IV SCH ×3 (05:49→23:06)
[2020-08-31] MEDS: HYDROmorphone 1 MG/1 ML INJ IV PRN ×4 (05:49→23:10)
[2020-08-31 06:01] LABS: Basophils % (Auto) 0.1 % (0.0-1.8); Hematocrit 39.3 % (30.3-42.9); Lymphocytes % (Auto) 8.1 % (13.4-35.0); Mean Corpuscular HGB Conc 33 % (30-34); Mean Corpuscular Volume 88 fl (79-97); Monocytes # (Auto) 0.8 K/mm3 (0.0-0.8); Monocytes % (Auto) 6.3 % (0.0-7.3); Platelet Count 335 K/mm3 (140-440); Red Blood Count 4.45 M/mm3 (3.65-5.03); Red Cell Distribution Width 14.5 % (13.2-15.2)
[2020-08-31 06:10] LABS: INR 1.5 (0.87-1.13)
[2020-08-31 06:13] LABS: BUN/Creatinine Ratio 10; Blood Urea Nitrogen 8 mg/dL (7-17); Calcium 8.9 mg/dL (8.4-10.2); Hemolysis Index 0
--- NOTE | 2020-08-31 07:56 | Progress Note ---
Assessment and Plan Assessment and plan: (1) Appendicitis Current Visit: Yes Status: Acute Qualifiers: Appendicitis type: acute appendicitis Acute appendicitis type: with localized peritonitis Appendicitis gangrene presence: without gangrene Appendicitis perforation presence: without perforation Appendicitis abscess presence: without abscess Qualified Code(s): K35.30 - Acute appendicitis with localized peritonitis, without perforation or gangrene Plan to address problem: Patient made NPO . Placed on empiric IV antibiotics. Consult placed to General surgeon for evaluation. Dr.Ronald Walker notified. Sepsis due to appendicitis -Evidenced by fever, tachycardia and leukocytosis -Patient is on Zosyn (2) Abdominal pain Current Visit: Yes Status: Acute Qualifiers: Abdominal location: epigastric Qualified Code(s): R10.13 - Epigastric pain Plan to address problem: Secondary to the Appendicits. Continue on IV analgesic medication (3) Nausea & vomiting Current Visit: Yes Status: Acute Qualifiers: Vomiting type: unspecified Vomiting Intractability: non-intractable Qualified Code(s): R11.2 - Nausea with vomiting, unspecified Plan to address problem: Patient placed on IV Zofran as needed. (4) DVT prophylaxis Current Visit: Yes Status: Acute Plan to address problem: Patient placed on sequential compression device (5) Full code status Current Visit: Yes Status: Acute Plan to address problem: Patient is Full code 08/30/2020 -Patient is on IV Zosyn for appendicitis and sepsis -Dr. Walker consulted in the emergency department -We will going to follow with general surgery -Symptomatic treatment for abdominal pain nausea and vomiting, until definitive treatment by general surgery -Patient had appendectomy this morning by Dr. Walker and his note stated that patient has infected peritoneal fluid, culture and sensitivity sent to lab. 08/31/2020 -Status post appendectomy, infected peritoneal fluid. ID consulted -Patient had fever and leukocytosis -Continue with IV antibiotics for now History Interval history: Patient was seen and evaluated this morning Patient had fever last night Patient does not have any complaints Hospitalist Physical - Physical exam Narrative exam: Not in cardiopulmonary distress. The patient appeared well nourished and normally developed. Vital signs as documented. Head exam is unremarkable. No scleral icterus . Neck is without jugular venous distension, thyromegaly, or carotid bruits. Lungs are clear to auscultation. Cardiac exam reveals regular rate and Rhythm. Abdominal exam reveals right lower quadrant pain, no guarding or rigidity. Extremities are nonedematous and both femoral and pedal pulses are normal. [employer]: Alert and oriented 3. No focal weakness. - Constitutional Vitals: Temp Pulse Resp BP Pulse Ox 98.7 F 108 H 16 113/68 99 08/31/20 07:52 08/31/20 07:52 08/31/20 07:52 08/31/20 07:52 08/31/20 07:52 General appearance: Present: no acute distress, well-nourished, obese Results - Labs CBC & Chem 7: 08/31/20 04:56 08/31/20 04:56 Labs: Laboratory Last Values WBC 12.2 K/mm3 (4.5-11.0) H 08/31/20 04:56 RBC 4.45 M/mm3 (3.65-5.03) 08/31/20 04:56 Hgb 13.0 gm/dl (10.1-14.3) 08/31/20 04:56 Hct 39.3 % (30.3-42.9) 08/31/20 04:56 MCV 88 fl (79-97) 08/31/20 04:56 MCH 29 pg (28-32) 08/31/20 04:56 MCHC 33 % (30-34) 08/31/20 04:56 RDW 14.5 % (13.2-15.2) 08/31/20 04:56 Plt Count 335 K/mm3 (140-440) 08/31/20 04:56 Lymph % (Auto) 8.1 % (13.4-35.0) L 08/31/20 04:56 [place] % (Auto) 6.3 % (0.0-7.3) 08/31/20 04:56 Eos % (Auto) 0.0 % (0.0-4.3) 08/31/20 04:56 Baso % (Auto) 0.1 % (0.0-1.8) 08/31/20 04:56 Lymph # (Auto) 1.0 K/mm3 (1.2-5.4) L 08/31/20 04:56 [place] # (Auto) 0.8 K/mm3 (0.0-0.8) 08/31/20 04:56 Eos # (Auto) 0.0 K/mm3 (0.0-0.4) 08/31/20 04:56 Baso # (Auto) 0.0 K/mm3 (0.0-0.1) 08/31/20 04:56 Add Manual Diff Complete 08/29/20 19:36 Total Counted 100 08/29/20 19:36 Seg Neutrophils % 85.5 % (40.0-70.0) H 08/31/20 04:56 Lymphocytes % (Manual) 3.0 % (13.4-35.0) L 08/29/20 19:36 Monocytes % (Manual) 2.0 % (0.0-7.3) 08/29/20 19:36 Nucleated RBC % Not Reportable 08/29/20 19:36 Seg Neutrophils # 10.4 K/mm3 (1.8-7.7) H 08/31/20 04:56 Seg Neutrophils # Man 16.6 K/mm3 (1.8-7.7) H 08/29/20 19:36 Band Neutrophils # 0.0 K/mm3 08/29/20 19:36 Lymphocytes # (Manual) 0.5 K/mm3 (1.2-5.4) L 08/29/20 19:36 Abs React Lymphs (Man) 0.0 K/mm3 08/29/20 19:36 Monocytes # (Manual) 0.4 K/mm3 (0.0-0.8) 08/29/20 19:36 Eosinophils # (Manual) 0.0 K/mm3 (0.0-0.4) 08/29/20 19:36 Basophils # (Manual) 0.0 K/mm3 (0.0-0.1) 08/29/20 19:36 Metamyelocytes # 0.0 K/mm3 08/29/20 19:36 Myelocytes # 0.0 K/mm3 08/29/20 19:36 Promyelocytes # 0.0 K/mm3 08/29/20 19:36 Blast Cells # 0.0 K/mm3 08/29/20 19:36 WBC Morphology Not Reportable 08/29/20 19:36 Hypersegmented Neuts Not Reportable 08/29/20 19:36 Hyposegmented Neuts Not Reportable 08/29/20 19:36 Hypogranular Neuts Not Reportable 08/29/20 19:36 Smudge Cells Not Reportable 08/29/20 19:36 Toxic Granulation Not Reportable 08/29/20 19:36 Toxic Vacuolation Not Reportable 08/29/20 19:36 Dohle Bodies Not Reportable 08/29/20 19:36 Pelger-Huet Anomaly Not Reportable 08/29/20 19:36 Tristan Rods Not Reportable 08/29/20 19:36 Platelet Estimate Consistent w auto 08/29/20 19:36 Clumped Platelets Not Reportable 08/29/20 19:36 Plt Clumps, EDTA Not Reportable 08/29/20 19:36 Large Platelets Not Reportable 08/29/20 19:36 Giant Platelets Not Reportable 08/29/20 19:36 Platelet Satelliting Not Reportable 08/29/20 19:36 Plt Morphology Comment Not Reportable 08/29/20 19:36 RBC Morphology Normal 08/29/20 19:36 Dimorphic RBCs Not Reportable 08/29/20 19:36 Polychromasia Not Reportable 08/29/20 19:36 Hypochromasia Not Reportable 08/29/20 19:36 Poikilocytosis Not Reportable 08/29/20 19:36 Anisocytosis Not Reportable 08/29/20 19:36 Microcytosis Not Reportable 08/29/20 19:36 Macrocytosis Not Reportable 08/29/20 19:36 Spherocytes Not Reportable 08/29/20 19:36 Pappenheimer Bodies Not Reportable 08/29/20 19:36 Sickle Cells Not Reportable 08/29/20 19:36 Target Cells Not Reportable 08/29/20 19:36 Tear Drop Cells Not Reportable 08/29/20 19:36 Ovalocytes Not Reportable 08/29/20 19:36 Helmet Cells Not Reportable 08/29/20 19:36 [place] Bodies Not Reportable 08/29/20 19:36 [place] Rings Not Reportable 08/29/20 19:36 [place] Cells Not Reportable 08/29/20 19:36 Bite Cells Not Reportable 08/29/20 19:36 Crenated Cell Not Reportable 08/29/20 19:36 Elliptocytes Not Reportable 08/29/20 19:36 Acanthocytes (Spur) Not Reportable 08/29/20 19:36 Rouleaux Not Reportable 08/29/20 19:36 Hemoglobin C Crystals Not Reportable 08/29/20 19:36 Schistocytes Not Reportable 08/29/20 19:36 Malaria parasites Not Reportable 08/29/20 19:36 Anand Bodies Not Reportable 08/29/20 19:36 Hem Pathologist Commnt No 08/29/20 19:36 PT 18.0 Sec. (12.2-14.9) H 08/31/20 04:56 INR 1.50 (0.87-1.13) H 08/31/20 04:56 Sodium 140 mmol/L (137-145) 08/31/20 04:56 Potassium 3.5 mmol/L (3.6-5.0) L 08/31/20 04:56 Chloride 105.0 mmol/L (98-107) 08/31/20 04:56 Carbon Dioxide 26 mmol/L (22-30) 08/31/20 04:56 Anion Gap 13 mmol/L 08/31/20 04:56 BUN 8 mg/dL (7-17) 08/31/20 04:56 Creatinine 0.8 mg/dL (0.6-1.2) 08/31/20 04:56 Estimated GFR > 60 ml/min 08/31/20 04:56 BUN/Creatinine Ratio 10 % 08/31/20 04:56 Glucose 101 mg/dL (65-100) H 08/31/20 04:56 Calcium 8.9 mg/dL (8.4-10.2) 08/31/20 04:56 Total Bilirubin 0.50 mg/dL (0.1-1.2) 08/29/20 20:28 AST 15 units/L (5-40) 08/29/20 20:28 ALT 13 units/L (7-56) 08/29/20 20:28 Alkaline Phosphatase 100 units/L (35-129) 08/29/20 20:28 Total Protein 7.5 g/dL (6.3-8.2) 08/29/20 20:28 Albumin 4.7 g/dL (3.9-5) 08/29/20 20:28 Albumin/Globulin Ratio 1.7 % 08/29/20 20:28 Lipase 16 units/L (13-60) 08/29/20 20:28 HCG, Qual Negative (Negative) 08/29/20 20:31 Microbiology: Microbiology 08/30/20 Unknown Peritoneal Fluid Surgical Culture - Preliminary Julio/IV: Voiding Method Toilet Active Medications - Current Medications Current Medications: Generic Name Dose Route Start Last Admin Trade Name Freq PRN Reason Stop Dose Admin Acetaminophen 650 mg 08/29/20 23:23 08/30/20 21:12 Acetaminophen 325 Mg Tab PO 650 mg Q4H PRN Administration Pain MILD(1-3)/Fever >100.5/SKAGGS Hydromorphone HCl 1 mg 08/30/20 00:27 08/31/20 05:49 Hydromorphone 1 Mg/1 Ml Inj IV 1 mg Q3H PRN Administration Pain , Severe (7-10) Sodium Chloride 1,000 mls @ 125 mls/hr 08/30/20 00:30 08/31/20 03:12 Nacl 0.9% 1000 Ml IV 125 mls/hr DIRECT ALICIA Administration Piperacillin Sod/Tazobactam Sod 4.5 gm in 100 mls @ 200 mls/hr 08/30/20 06:00 08/31/20 05:49 Zosyn/Ns 4.5gm/100ml IV 200 mls/hr Q8HR ALICIA Administration Protocol Metronidazole 500 mg in 100 mls @ 100 mls/hr 08/30/20 12:00 08/31/20 03:12 Flagyl 500 Mg/100 Ml IV 100 mls/hr Q8H ALICIA Administration Protocol Ondansetron HCl 4 mg 08/29/20 23:23 08/31/20 05:49 Ondansetron 4 Mg/2 Ml Inj IV 4 mg Q8H PRN Administration Nausea And Vomiting Sodium Chloride 10 ml 08/29/20 23:23 Sodium Chloride 0.9% 10 Ml Flush Syringe IV PRN PRN LINE FLUSH Sodium Chloride 10 ml 08/30/20 08:00 08/31/20 02:02 Sodium Chloride 0.9% 10 Ml Flush Syringe IV 10 ml BID ALICIA Administration
[2020-08-31] MEDS ORDERED: ONDANSETRON 4 MG/2 ML INJ IV ONE (10:34)
--- NOTE | 2020-08-31 11:34 | Post Anesthesia Evaluation ---
- Post Anesthesia Evaluation Patient Participated: Yes Airway Patent: Yes Stable Respiratory Function: Yes Nausea/Vomiting: No Temp > 96.8F: Yes Pain Manageable: Yes Adequeate Hydration: Yes Anesthesia Complications: No Other Comments: POD1 s/p lap appendectomy. Denies nausea/vominting immediately after surgery however has had nausea today within 30mins of receiving IV pain medications which is resolved with IV antiemetics. All anesthetic questons/concerns addressed.
--- NOTE | 2020-08-31 12:32 | Progress Note ---
Assessment and Plan - Patient Problems (1) Appendicitis Current Visit: Yes Status: Acute Qualifiers: Appendicitis type: acute appendicitis Acute appendicitis type: with localized peritonitis Appendicitis gangrene presence: without gangrene Appendicitis perforation presence: without perforation Appendicitis abscess presence: without abscess Qualified Code(s): K35.30 - Acute appendicitis with localized peritonitis, without perforation or gangrene (2) Acute perforated appendicitis Current Visit: Yes Status: Acute Plan to address problem: 1) Continue IV Zosyn and Flagyl 2) Pt wants to stay on clear liquids 3) CBC & BMP in the am 4) F/u C&S of intraperitoneal pus Subjective Date of service: 08/31/20 Patient Reports: Positive: no new complaints, feels better, voiding w/o difficulty (Feels much better c/w yesterday.) Objective Vital Signs - 12hr 08/31/20 08/31/20 08/31/20 05:01 07:52 11:48 Temperature 99.9 F H 98.7 F Pulse Rate 110 H 108 H 99 H Respiratory 24 16 16 Rate Blood Pressure 139/78 Blood Pressure 113/68 111/55 [Left] O2 Sat by Pulse 99 99 97 Oximetry - General physical appearance well developed, well nourished, no distress - Abdomen soft, bowel sounds hypoactive (Minimally tender to palpation in the BLQ. No rebound or guarding.) - Labs 08/31/20 04:56 08/31/20 04:56 Diabetes panel 08/31/20 Range/Units 04:56 Sodium 140 (137-145) mmol/L Potassium 3.5 L (3.6-5.0) mmol/L Chloride 105.0 (98-107) mmol/L Carbon Dioxide 26 (22-30) mmol/L BUN 8 (7-17) mg/dL Creatinine 0.8 (0.6-1.2) mg/dL Glucose 101 H (65-100) mg/dL Calcium 8.9 (8.4-10.2) mg/dL Calcium panel 08/31/20 Range/Units 04:56 Calcium 8.9 (8.4-10.2) mg/dL Pituitary panel 08/31/20 Range/Units 04:56 Sodium 140 (137-145) mmol/L Potassium 3.5 L (3.6-5.0) mmol/L Chloride 105.0 (98-107) mmol/L Carbon Dioxide 26 (22-30) mmol/L BUN 8 (7-17) mg/dL Creatinine 0.8 (0.6-1.2) mg/dL Glucose 101 H (65-100) mg/dL Calcium 8.9 (8.4-10.2) mg/dL Adrenal panel 08/31/20 Range/Units 04:56 Sodium 140 (137-145) mmol/L Potassium 3.5 L (3.6-5.0) mmol/L Chloride 105.0 (98-107) mmol/L Carbon Dioxide 26 (22-30) mmol/L BUN 8 (7-17) mg/dL Creatinine 0.8 (0.6-1.2) mg/dL Glucose 101 H (65-100) mg/dL Calcium 8.9 (8.4-10.2) mg/dL
[2020-08-31] MEDS ORDERED: oxyCODONE /ACETAMINOPHEN 5-325MG TAB PO PRN (13:51)
--- NOTE | 2020-08-31 14:21 | Consultation ---
History of Present Illness - Reason for Consult Consult date: 08/31/20 intra-abdominal sepsis Requesting physician: PALLAVI DUNAWAY - History of Present Illness The patient is a 19-year-old female with history of asthma admitted to the hospital on 08/29/[address] abdomen revealed findings concerning for appendicitis as well as some colitis, labs were suggestive of sepsis. Patient was seen by general surgery and on 08/30/2019, underwent a laparoscopic appendectomy. There was some purulence noted intra-abdominally which was cultured. Currently on empiric antibiotics. Infectious diseases was consulted for additional evaluation. Passing gas, BM +. Abdominal pain + Review of Systems: General: no fevers,chills or rigors HEENT: no new visual disturbance Respiratory: No cough, sputum, hemoptysis or shortness of breath Cardiovascular: No chest pain, syncope Gastrointestinal: No nausea, vomiting or diarrhea Genitourinary: No dysuria or hematuria Musculoskeletal: No new or worsening neck pain or back pain Neurologic: No headaches, seizures Hematologic: No easy bruising or bleeding Endocrine: No night sweats or acute weight loss Skin: negative for rash, jaundice Psychiatric: No suicidal or homicidal ideation Past History Past Medical History: other (Asthma, H/O Genital herpes) Past Surgical History: No surgical history Social history: other (Smokes Marijuana Occasionally) Family history: no significant family history Medications and Allergies Allergies Allergy/AdvReac Type Severity Reaction Status Date / Time No Known Allergies Allergy Unverified 08/29/20 20:48 Home Medications Medication Instructions Recorded Confirmed Last Taken Type No Known Home Medications [No 08/30/20 08/30/20 Unknown History Reported Home Medications] Active Meds: Active Medications Acetaminophen (Acetaminophen 325 Mg Tab) 650 mg PO Q4H PRN PRN Reason: Pain MILD(1-3)/Fever >100.5/SKAGGS Last Admin: 08/30/20 21:12 Dose: 650 mg Documented by: Hydromorphone HCl (Hydromorphone 1 Mg/1 Ml Inj) 1 mg IV Q3H PRN PRN Reason: Pain , Severe (7-10) Last Admin: 08/31/20 13:25 Dose: 1 mg Documented by: Sodium Chloride (Nacl 0.9% 1000 Ml) 1,000 mls @ 125 mls/hr IV DIRECT ALICIA Last Admin: 08/31/20 03:12 Dose: 125 mls/hr Documented by: Piperacillin Sod/Tazobactam Sod (Zosyn/Ns 4.5gm/100ml) 4.5 gm in 100 mls @ 200 mls/hr IV Q8HR [facility]; Protocol Last Admin: 08/31/20 13:25 Dose: 200 mls/hr Documented by: Ondansetron HCl (Ondansetron 4 Mg/2 Ml Inj) 4 mg IV Q8H PRN PRN Reason: Nausea And Vomiting Last Admin: 08/31/20 10:36 Dose: 4 mg Documented by: Ondansetron HCl (Ondansetron 4 Mg/2 Ml Inj) 4 mg IV Q6H PRN PRN Reason: Nausea Oxycodone/Acetaminophen (Oxycodone /Acetaminophen 5-325mg Tab) 2 tab PO Q4H PRN PRN Reason: Pain, Moderate (4-6) Sodium Chloride (Sodium Chloride 0.9% 10 Ml Flush Syringe) 10 ml IV PRN PRN PRN Reason: LINE FLUSH Sodium Chloride (Sodium Chloride 0.9% 10 Ml Flush Syringe) 10 ml IV BID [facility] Last Admin: 08/31/20 10:11 Dose: 10 ml Documented by: Physical Examination - Physical Exam Narrative exam: Physical Exam: Constitutional: Alert, cooperative. No acute distress Head, Ears, Nose: Normocephalic, atraumatic. External ears, nose normal Eyes: Conjunctivae/corneas clear. No icterus. No ptosis. Neck: Supple, no meningeal signs Cardiovascular: S1, S2 normal. Respiratory: Good air entry, clear to auscultation bilaterally GI: Soft; bowel sounds normal. Lap incisions c/d/i Musculoskeletal: No pedal edema, no cyanosis. Skin: No rash or abscess Hem/Lymphatic: No palpable cervical or supraclavicular nodes. No lymphangitis Psych: Mood ok. Affect normal Neurological: Awake, alert, oriented. No gross abnormality - Constitutional Vitals: Vital Signs Temp Pulse Resp BP Pulse Ox 98.7 F 99 H 16 111/55 97 08/31/20 07:52 08/31/20 11:48 08/31/20 11:48 08/31/20 11:48 08/31/20 11:48 Temperature -Last 24 Hours Temperature 98.7 F Temperature 99.9 F Temperature 98.8 F Temperature 101.6 F Temperature 98.2 F Results - Labs CBC & Chem 7: 08/31/20 04:56 08/31/20 04:56 Labs: Abnormal lab results 08/31/20 08/31/20 08/31/20 Range/Units 04:56 04:56 04:56 WBC 12.2 H (4.5-11.0) K/mm3 Lymph % (Auto) 8.1 L (13.4-35.0) % Lymph # (Auto) 1.0 L (1.2-5.4) K/mm3 Seg Neutrophils % 85.5 H (40.0-70.0) % Seg Neutrophils # 10.4 H (1.8-7.7) K/mm3 PT 18.0 H (12.2-14.9) Sec. INR 1.50 H (0.87-1.13) Potassium 3.5 L (3.6-5.0) mmol/L Glucose 101 H (65-100) mg/dL - Imaging and Cardiology CT scan - abdomen: report reviewed, image reviewed (appendicitis, possible colitis) Assessment and Plan Cultures: 08/30/2020 peritoneal fluid culture: In process A/P: 19-year-old female with history of asthma admitted to the hospital on 08/29/[address] abdomen revealed findings concerning for appendicitis as well as some colitis, labs were suggestive of sepsis: #Appendicitis, peritonitis: Status post laparoscopic appendectomy. Intra-op with infected peritoneal fluid. Passing gas, BM +. #Sepsis: due to above. Recs: -Continue Zosyn, f/u cultures -flagyl discontinued -Given surgical source control, anticipate short course of antibiotics -Recheck CBC in a.m. Elliot Chinchilla MD, FACP [facility] O: [phone] F: [phone]
[2020-08-31] MEDS: oxyCODONE /ACETAMINOPHEN 5-325MG TAB PO PRN (15:06)
[2020-08-31] MEDS: FAMOTIDINE 10 MG TAB PO SCH ×2 (16:47→23:09)
[2020-08-31] MEDS: ACETAMINOPHEN 325 MG TAB PO PRN (23:09)
[2020-09-01] MEDS: PIPERACIL/TAZOBACTA 4.5/NS 100 4.5 GM/100 ML VIAL IV SCH ×3 (05:59→22:11)
[2020-09-01] MEDS: SODIUM CHLORIDE 0.9% 1000 ML 1,000 ML IV SCH ×2 (06:00→13:15)
[2020-09-01] MEDS: HYDROmorphone 1 MG/1 ML INJ IV PRN (06:01)
[2020-09-01] MEDS: ONDANSETRON 4 MG/2 ML INJ IV PRN (06:05)
--- NOTE | 2020-09-01 08:07 | Progress Note ---
Assessment and Plan Assessment and plan: (1) Appendicitis Current Visit: Yes Status: Acute Qualifiers: Appendicitis type: acute appendicitis Acute appendicitis type: with localized peritonitis Appendicitis gangrene presence: without gangrene Appendicitis perforation presence: without perforation Appendicitis abscess presence: without abscess Qualified Code(s): K35.30 - Acute appendicitis with localized peritonitis, without perforation or gangrene Plan to address problem: Patient made NPO . Placed on empiric IV antibiotics. Consult placed to General surgeon for evaluation. Dr.Ronald Walker notified. Sepsis due to appendicitis -Evidenced by fever, tachycardia and leukocytosis -Patient is on Zosyn (2) Abdominal pain Current Visit: Yes Status: Acute Qualifiers: Abdominal location: epigastric Qualified Code(s): R10.13 - Epigastric pain Plan to address problem: Secondary to the Appendicits. Continue on IV analgesic medication (3) Nausea & vomiting Current Visit: Yes Status: Acute Qualifiers: Vomiting type: unspecified Vomiting Intractability: non-intractable Qualified Code(s): R11.2 - Nausea with vomiting, unspecified Plan to address problem: Patient placed on IV Zofran as needed. (4) DVT prophylaxis Current Visit: Yes Status: Acute Plan to address problem: Patient placed on sequential compression device (5) Full code status Current Visit: Yes Status: Acute Plan to address problem: Patient is Full code 08/30/2020 -Patient is on IV Zosyn for appendicitis and sepsis -Dr. Walker consulted in the emergency department -We will going to follow with general surgery -Symptomatic treatment for abdominal pain nausea and vomiting, until definitive treatment by general surgery -Patient had appendectomy this morning by Dr. Walker and his note stated that patient has infected peritoneal fluid, culture and sensitivity sent to lab. 08/31/2020 -Status post appendectomy, infected peritoneal fluid. ID consulted -Patient had fever and leukocytosis -Continue with IV antibiotics for now 08/30/2020 -Sepsis due to appendicitis, status post appendectomy effective peritoneal fluid -Leukocytosis resolved -Was seen by ID and recommended to continue Zosyn for now, patient is a surgical infection he recommends short-term antibiotics -Surgery is following the patient -Patient is on clear liquid diet History Interval history: Patient was seen and evaluated this morning Patient had fever last night Patient does not have any complaints Hospitalist Physical - Physical exam Narrative exam: Not in cardiopulmonary distress. The patient appeared well nourished and normally developed. Vital signs as documented. Head exam is unremarkable. No scleral icterus . Neck is without jugular venous distension, thyromegaly, or carotid bruits. Lungs are clear to auscultation. Cardiac exam reveals regular rate and Rhythm. Abdominal exam reveals right lower quadrant pain, no guarding or rigidity. Extremities are nonedematous and both femoral and pedal pulses are normal. [employer]: Alert and oriented 3. No focal weakness. - Constitutional Vitals: Temp Pulse Resp BP Pulse Ox 99.1 F 110 H 18 126/68 99 09/01/20 03:55 09/01/20 03:55 09/01/20 03:55 09/01/20 03:55 09/01/20 03:55 General appearance: Present: no acute distress, well-nourished, obese Results - Labs CBC & Chem 7: 09/01/20 08:12 09/01/20 08:12 Labs: Laboratory Last Values WBC 12.2 K/mm3 (4.5-11.0) H 08/31/20 04:56 RBC 4.45 M/mm3 (3.65-5.03) 08/31/20 04:56 Hgb 13.0 gm/dl (10.1-14.3) 08/31/20 04:56 Hct 39.3 % (30.3-42.9) 08/31/20 04:56 MCV 88 fl (79-97) 08/31/20 04:56 MCH 29 pg (28-32) 08/31/20 04:56 MCHC 33 % (30-34) 08/31/20 04:56 RDW 14.5 % (13.2-15.2) 08/31/20 04:56 Plt Count 335 K/mm3 (140-440) 08/31/20 04:56 Lymph % (Auto) 8.1 % (13.4-35.0) L 08/31/20 04:56 [place] % (Auto) 6.3 % (0.0-7.3) 08/31/20 04:56 Eos % (Auto) 0.0 % (0.0-4.3) 08/31/20 04:56 Baso % (Auto) 0.1 % (0.0-1.8) 08/31/20 04:56 Lymph # (Auto) 1.0 K/mm3 (1.2-5.4) L 08/31/20 04:56 [place] # (Auto) 0.8 K/mm3 (0.0-0.8) 08/31/20 04:56 Eos # (Auto) 0.0 K/mm3 (0.0-0.4) 08/31/20 04:56 Baso # (Auto) 0.0 K/mm3 (0.0-0.1) 08/31/20 04:56 Add Manual Diff Complete 08/29/20 19:36 Total Counted 100 08/29/20 19:36 Seg Neutrophils % 85.5 % (40.0-70.0) H 08/31/20 04:56 Lymphocytes % (Manual) 3.0 % (13.4-35.0) L 08/29/20 19:36 Monocytes % (Manual) 2.0 % (0.0-7.3) 08/29/20 19:36 Nucleated RBC % Not Reportable 08/29/20 19:36 Seg Neutrophils # 10.4 K/mm3 (1.8-7.7) H 08/31/20 04:56 Seg Neutrophils # Man 16.6 K/mm3 (1.8-7.7) H 08/29/20 19:36 Band Neutrophils # 0.0 K/mm3 08/29/20 19:36 Lymphocytes # (Manual) 0.5 K/mm3 (1.2-5.4) L 08/29/20 19:36 Abs React Lymphs (Man) 0.0 K/mm3 08/29/20 19:36 Monocytes # (Manual) 0.4 K/mm3 (0.0-0.8) 08/29/20 19:36 Eosinophils # (Manual) 0.0 K/mm3 (0.0-0.4) 08/29/20 19:36 Basophils # (Manual) 0.0 K/mm3 (0.0-0.1) 08/29/20 19:36 Metamyelocytes # 0.0 K/mm3 08/29/20 19:36 Myelocytes # 0.0 K/mm3 08/29/20 19:36 Promyelocytes # 0.0 K/mm3 08/29/20 19:36 Blast Cells # 0.0 K/mm3 08/29/20 19:36 WBC Morphology Not Reportable 08/29/20 19:36 Hypersegmented Neuts Not Reportable 08/29/20 19:36 Hyposegmented Neuts Not Reportable 08/29/20 19:36 Hypogranular Neuts Not Reportable 08/29/20 19:36 Smudge Cells Not Reportable 08/29/20 19:36 Toxic Granulation Not Reportable 08/29/20 19:36 Toxic Vacuolation Not Reportable 08/29/20 19:36 Dohle Bodies Not Reportable 08/29/20 19:36 Pelger-Huet Anomaly Not Reportable 08/29/20 19:36 Tristan Rods Not Reportable 08/29/20 19:36 Platelet Estimate Consistent w auto 08/29/20 19:36 Clumped Platelets Not Reportable 08/29/20 19:36 Plt Clumps, EDTA Not Reportable 08/29/20 19:36 Large Platelets Not Reportable 08/29/20 19:36 Giant Platelets Not Reportable 08/29/20 19:36 Platelet Satelliting Not Reportable 08/29/20 19:36 Plt Morphology Comment Not Reportable 08/29/20 19:36 RBC Morphology Normal 08/29/20 19:36 Dimorphic RBCs Not Reportable 08/29/20 19:36 Polychromasia Not Reportable 08/29/20 19:36 Hypochromasia Not Reportable 08/29/20 19:36 Poikilocytosis Not Reportable 08/29/20 19:36 Anisocytosis Not Reportable 08/29/20 19:36 Microcytosis Not Reportable 08/29/20 19:36 Macrocytosis Not Reportable 08/29/20 19:36 Spherocytes Not Reportable 08/29/20 19:36 Pappenheimer Bodies Not Reportable 08/29/20 19:36 Sickle Cells Not Reportable 08/29/20 19:36 Target Cells Not Reportable 08/29/20 19:36 Tear Drop Cells Not Reportable 08/29/20 19:36 Ovalocytes Not Reportable 08/29/20 19:36 Helmet Cells Not Reportable 08/29/20 19:36 [place] Bodies Not Reportable 08/29/20 19:36 [place] Rings Not Reportable 08/29/20 19:36 [place] Cells Not Reportable 08/29/20 19:36 Bite Cells Not Reportable 08/29/20 19:36 Crenated Cell Not Reportable 08/29/20 19:36 Elliptocytes Not Reportable 08/29/20 19:36 Acanthocytes (Spur) Not Reportable 08/29/20 19:36 Rouleaux Not Reportable 08/29/20 19:36 Hemoglobin C Crystals Not Reportable 08/29/20 19:36 Schistocytes Not Reportable 08/29/20 19:36 Malaria parasites Not Reportable 08/29/20 19:36 Anand Bodies Not Reportable 08/29/20 19:36 Hem Pathologist Commnt No 08/29/20 19:36 PT 18.0 Sec. (12.2-14.9) H 08/31/20 04:56 INR 1.50 (0.87-1.13) H 08/31/20 04:56 Sodium 140 mmol/L (137-145) 08/31/20 04:56 Potassium 3.5 mmol/L (3.6-5.0) L 08/31/20 04:56 Chloride 105.0 mmol/L (98-107) 08/31/20 04:56 Carbon Dioxide 26 mmol/L (22-30) 08/31/20 04:56 Anion Gap 13 mmol/L 08/31/20 04:56 BUN 8 mg/dL (7-17) 08/31/20 04:56 Creatinine 0.8 mg/dL (0.6-1.2) 08/31/20 04:56 Estimated GFR > 60 ml/min 08/31/20 04:56 BUN/Creatinine Ratio 10 % 08/31/20 04:56 Glucose 101 mg/dL (65-100) H 08/31/20 04:56 POC Glucose 87 mg/dL (70-105) 08/31/20 21:43 Calcium 8.9 mg/dL (8.4-10.2) 08/31/20 04:56 Total Bilirubin 0.50 mg/dL (0.1-1.2) 08/29/20 20:28 AST 15 units/L (5-40) 08/29/20 20:28 ALT 13 units/L (7-56) 08/29/20 20:28 Alkaline Phosphatase 100 units/L (35-129) 08/29/20 20:28 Total Protein 7.5 g/dL (6.3-8.2) 08/29/20 20:28 Albumin 4.7 g/dL (3.9-5) 08/29/20 20:28 Albumin/Globulin Ratio 1.7 % 08/29/20 20:28 Lipase 16 units/L (13-60) 08/29/20 20:28 HCG, Qual Negative (Negative) 08/29/20 20:31 Microbiology: Microbiology 08/30/20 Unknown Peritoneal Fluid Surgical Culture - Preliminary Julio/IV: Voiding Method Toilet Active Medications - Current Medications Current Medications: Generic Name Dose Route Start Last Admin Trade Name Freq PRN Reason Stop Dose Admin Acetaminophen 650 mg 08/29/20 23:23 08/31/20 23:09 Acetaminophen 325 Mg Tab PO 650 mg Q4H PRN Administration Pain MILD(1-3)/Fever >100.5/SKAGGS Famotidine 10 mg 08/31/20 16:30 08/31/20 23:09 Famotidine 10 Mg Tab PO 10 mg BID ALICIA Administration Hydromorphone HCl 1 mg 08/30/20 00:27 09/01/20 06:01 Hydromorphone 1 Mg/1 Ml Inj IV 1 mg Q3H PRN Administration Pain , Severe (7-10) Sodium Chloride 1,000 mls @ 125 mls/hr 08/30/20 00:30 09/01/20 06:00 Nacl 0.9% 1000 Ml IV 125 mls/hr DIRECT ALICIA Administration Piperacillin Sod/Tazobactam Sod 4.5 gm in 100 mls @ 200 mls/hr 08/30/20 06:00 09/01/20 05:59 Zosyn/Ns 4.5gm/100ml IV 200 mls/hr Q8HR ALICIA Administration Protocol Ondansetron HCl 4 mg 08/31/20 10:35 09/01/20 06:05 Ondansetron 4 Mg/2 Ml Inj IV 4 mg Q6H PRN Administration Nausea Oxycodone/Acetaminophen 2 tab 08/31/20 13:48 08/31/20 15:06 Oxycodone /Acetaminophen 5-325mg Tab PO 2 tab Q4H PRN Administration Pain, Moderate (4-6) Sodium Chloride 10 ml 08/29/20 23:23 Sodium Chloride 0.9% 10 Ml Flush Syringe IV PRN PRN LINE FLUSH Sodium Chloride 10 ml 08/30/20 08:00 08/31/20 23:20 Sodium Chloride 0.9% 10 Ml Flush Syringe IV 10 ml BID ALICIA Administration
[2020-09-01 08:35] LABS: Basophils % (Auto) 0.4 % (0.0-1.8); Eosinophils % (Auto) 0.2 % (0.0-4.3); Hematocrit 37.4 % (30.3-42.9); Hemoglobin 12.2 gm/dl (10.1-14.3); Lymphocytes # (Auto) 1.3 K/mm3 (1.2-5.4); Lymphocytes % (Auto) 12.6 % (13.4-35.0); Mean Corpuscular HGB Conc 33 % (30-34); Mean Corpuscular Volume 89 fl (79-97); Monocytes # (Auto) 0.5 K/mm3 (0.0-0.8); Platelet Count 289 K/mm3 (140-440); Red Blood Count 4.19 M/mm3 (3.65-5.03); Red Cell Distribution Width 14.5 % (13.2-15.2)
[2020-09-01] MEDS: oxyCODONE /ACETAMINOPHEN 5-325MG TAB PO PRN ×2 (08:40→15:33)
[2020-09-01] MEDS: FAMOTIDINE 10 MG TAB PO SCH ×2 (08:40→22:11)
[2020-09-01 09:00] LABS: Blood Urea Nitrogen 6 mg/dL (7-17); Calcium 7.9 mg/dL (8.4-10.2); Hemolysis Index 5
[2020-09-01 09:02] LABS: BUN/Creatinine Ratio 9
--- NOTE | 2020-09-01 13:58 | Progress Note ---
Assessment and Plan Cultures: 08/30/2020 peritoneal fluid culture: In process A/P: 19-year-old female with history of asthma admitted to the hospital on 08/29/[address] abdomen revealed findings concerning for appendicitis as well as some colitis, labs were suggestive of sepsis: #Appendicitis, peritonitis: Status post laparoscopic appendectomy. Intra-op with infected peritoneal fluid. Passing gas, BM +. Surgical date: 08/30/2020 #Sepsis: due to above. Recs: -Continue Zosyn, f/u cultures -Given surgical source control, anticipate short course of antibiotics Samra Fowler MD [facility] O: [phone] F: [phone] Subjective Date of service: 09/01/20 Interval history: Febrile to 101.1 with a white count to 10.6, which is improved. Objective - Exam Narrative Exam: Physical Exam: Constitutional: Alert, cooperative. No acute distress Head, Ears, Nose: Normocephalic, atraumatic. External ears, nose normal Eyes: Conjunctivae/corneas clear. No icterus. No ptosis. Neck: Supple, no meningeal signs Cardiovascular: S1, S2 normal. Respiratory: Good air entry, clear to auscultation bilaterally GI: Soft; bowel sounds normal. Lap incisions c/d/i Musculoskeletal: No pedal edema, no cyanosis. Skin: No rash or abscess Hem/Lymphatic: No palpable cervical or supraclavicular nodes. Psych: Mood ok. Affect normal Neurological: Awake, alert, oriented. No gross abnormality - Constitutional Vitals: Vital Signs Temp Pulse Resp BP Pulse Ox 98.2 F 95 H 18 134/85 96 09/01/20 12:23 09/01/20 12:23 09/01/20 12:23 09/01/20 12:23 09/01/20 12:23 Temperature -Last 24 Hours Temperature 98.2 F Temperature 100.0 F Temperature 99.1 F Temperature 101.1 F Temperature 100.5 F Temperature 99.9 F - Labs CBC & Chem 7: 09/01/20 08:12 09/01/20 08:12 Labs: Abnormal lab results 09/01/20 09/01/20 Range/Units 08:12 08:12 Lymph % (Auto) 12.6 L (13.4-35.0) % Seg Neutrophils % 81.8 H (40.0-70.0) % Seg Neutrophils # 8.7 H (1.8-7.7) K/mm3 Chloride 107.9 H (98-107) mmol/L BUN 6 L (7-17) mg/dL Calcium 7.9 L (8.4-10.2) mg/dL
--- NOTE | 2020-09-01 14:31 | Progress Note ---
Assessment and Plan - Patient Problems (1) Appendicitis Current Visit: Yes Status: Acute Qualifiers: Appendicitis type: acute appendicitis Acute appendicitis type: with localized peritonitis Appendicitis gangrene presence: without gangrene Appendicitis perforation presence: without perforation Appendicitis abscess presence: without abscess Qualified Code(s): K35.30 - Acute appendicitis with localized peritonitis, without perforation or gangrene (2) Acute perforated appendicitis Current Visit: Yes Status: Acute Plan to address problem: 1) Antibiotics per ID. 2) CBC in the am 3) Advance diet as tolerated. Subjective Date of service: 09/01/20 Patient Reports: Positive: no new complaints, feels better, bowel movement (Vomited X 1 yesterday. Good pain control with Percocet.) Objective Vital Signs - 12hr 09/01/20 09/01/20 09/01/20 03:55 07:50 09:40 Temperature 99.1 F 100.0 F H Pulse Rate 110 H 120 H Respiratory 18 18 18 Rate Blood Pressure 126/68 123/80 O2 Sat by Pulse 99 95 Oximetry 09/01/20 12:23 Temperature 98.2 F Pulse Rate 95 H Respiratory 18 Rate Blood Pressure 134/85 O2 Sat by Pulse 96 Oximetry - Abdomen soft, bowel sounds normal (Non-tender. Periumbilical packing removed.) Hernia: none - Labs 09/01/20 08:12 09/01/20 08:12 Diabetes panel 09/01/20 Range/Units 08:12 Sodium 138 (137-145) mmol/L Potassium 3.7 (3.6-5.0) mmol/L Chloride 107.9 H (98-107) mmol/L Carbon Dioxide 22 (22-30) mmol/L BUN 6 L (7-17) mg/dL Creatinine 0.7 (0.6-1.2) mg/dL Glucose 97 (65-100) mg/dL Calcium 7.9 L (8.4-10.2) mg/dL Calcium panel 09/01/20 Range/Units 08:12 Calcium 7.9 L (8.4-10.2) mg/dL Pituitary panel 09/01/20 Range/Units 08:12 Sodium 138 (137-145) mmol/L Potassium 3.7 (3.6-5.0) mmol/L Chloride 107.9 H (98-107) mmol/L Carbon Dioxide 22 (22-30) mmol/L BUN 6 L (7-17) mg/dL Creatinine 0.7 (0.6-1.2) mg/dL Glucose 97 (65-100) mg/dL Calcium 7.9 L (8.4-10.2) mg/dL Adrenal panel 09/01/20 Range/Units 08:12 Sodium 138 (137-145) mmol/L Potassium 3.7 (3.6-5.0) mmol/L Chloride 107.9 H (98-107) mmol/L Carbon Dioxide 22 (22-30) mmol/L BUN 6 L (7-17) mg/dL Creatinine 0.7 (0.6-1.2) mg/dL Glucose 97 (65-100) mg/dL Calcium 7.9 L (8.4-10.2) mg/dL
[2020-09-02] MEDS: oxyCODONE /ACETAMINOPHEN 5-325MG TAB PO PRN ×2 (01:21→10:13)
[2020-09-02] MEDS: SODIUM CHLORIDE 0.9% 1000 ML 1,000 ML IV SCH (01:24)
[2020-09-02] MEDS: PIPERACIL/TAZOBACTA 4.5/NS 100 4.5 GM/100 ML VIAL IV SCH (05:38)
--- NOTE | 2020-09-02 08:26 | Progress Note ---
Assessment and Plan Assessment and plan: (1) Appendicitis Current Visit: Yes Status: Acute Qualifiers: Appendicitis type: acute appendicitis Acute appendicitis type: with localized peritonitis Appendicitis gangrene presence: without gangrene Appendicitis perforation presence: without perforation Appendicitis abscess presence: without abscess Qualified Code(s): K35.30 - Acute appendicitis with localized peritonitis, without perforation or gangrene Plan to address problem: Patient made NPO . Placed on empiric IV antibiotics. Consult placed to General surgeon for evaluation. Dr.Ronald Walker notified. Sepsis due to appendicitis -Evidenced by fever, tachycardia and leukocytosis -Patient is on Zosyn (2) Abdominal pain Current Visit: Yes Status: Acute Qualifiers: Abdominal location: epigastric Qualified Code(s): R10.13 - Epigastric pain Plan to address problem: Secondary to the Appendicits. Continue on IV analgesic medication (3) Nausea & vomiting Current Visit: Yes Status: Acute Qualifiers: Vomiting type: unspecified Vomiting Intractability: non-intractable Qualified Code(s): R11.2 - Nausea with vomiting, unspecified Plan to address problem: Patient placed on IV Zofran as needed. (4) DVT prophylaxis Current Visit: Yes Status: Acute Plan to address problem: Patient placed on sequential compression device (5) Full code status Current Visit: Yes Status: Acute Plan to address problem: Patient is Full code 08/30/2020 -Patient is on IV Zosyn for appendicitis and sepsis -Dr. Walker consulted in the emergency department -We will going to follow with general surgery -Symptomatic treatment for abdominal pain nausea and vomiting, until definitive treatment by general surgery -Patient had appendectomy this morning by Dr. Walker and his note stated that patient has infected peritoneal fluid, culture and sensitivity sent to lab. 08/31/2020 -Status post appendectomy, infected peritoneal fluid. ID consulted -Patient had fever and leukocytosis -Continue with IV antibiotics for now 09/01/2020 -Sepsis due to appendicitis, status post appendectomy effective peritoneal fluid -Leukocytosis resolved -Was seen by ID and recommended to continue Zosyn for now, patient is a surgical infection he recommends short-term antibiotics -Surgery is following the patient -Patient is on clear liquid diet 09/02/20 -Patient's condition is improving, pending anaerobic culture -Continue with Zosyn -Advance diet as tolerated -Disposition is per surgery recommendation. Patient was evaluated by ID and recommend to continue Augmentin and Levaquin until 09/06. General surgery okay for discharge and will follow her in the off ice in 2 weeks. History Interval history: Patient was seen and evaluated this morning Patient did not have any fever out last 24 hours Patient's condition is getting better Hospitalist Physical - Physical exam Narrative exam: Not in cardiopulmonary distress. The patient appeared well nourished and normally developed. Vital signs as documented. Head exam is unremarkable. No scleral icterus . Neck is without jugular venous distension, thyromegaly, or carotid bruits. Lungs are clear to auscultation. Cardiac exam reveals regular rate and Rhythm. Abdominal exam reveals right lower quadrant pain, no guarding or rigidity. Extremities are nonedematous and both femoral and pedal pulses are normal. 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 No focal weakness. - Constitutional Vitals: Temp Pulse Resp BP Pulse Ox 97.5 F L 95 H 16 140/76 98 09/02/20 07:58 09/02/20 07:58 09/02/20 07:58 09/02/20 07:58 09/02/20 07:58 General appearance: Present: no acute distress, well-nourished, obese Results - Labs CBC & Chem 7: 09/02/20 09:31 09/02/20 09:31 Labs: Laboratory Last Values WBC 10.6 K/mm3 (4.5-11.0) 09/01/20 08:12 RBC 4.19 M/mm3 (3.65-5.03) 09/01/20 08:12 Hgb 12.2 gm/dl (10.1-14.3) 09/01/20 08:12 Hct 37.4 % (30.3-42.9) 09/01/20 08:12 MCV 89 fl (79-97) 09/01/20 08:12 MCH 29 pg (28-32) 09/01/20 08:12 MCHC 33 % (30-34) 09/01/20 08:12 RDW 14.5 % (13.2-15.2) 09/01/20 08:12 Plt Count 289 K/mm3 (140-440) 09/01/20 08:12 Lymph % (Auto) 12.6 % (13.4-35.0) L 09/01/20 08:12 [place] % (Auto) 5.0 % (0.0-7.3) 09/01/20 08:12 Eos % (Auto) 0.2 % (0.0-4.3) 09/01/20 08:12 Baso % (Auto) 0.4 % (0.0-1.8) 09/01/20 08:12 Lymph # (Auto) 1.3 K/mm3 (1.2-5.4) 09/01/20 08:12 [place] # (Auto) 0.5 K/mm3 (0.0-0.8) 09/01/20 08:12 Eos # (Auto) 0.0 K/mm3 (0.0-0.4) 09/01/20 08:12 Baso # (Auto) 0.0 K/mm3 (0.0-0.1) 09/01/20 08:12 Add Manual Diff Complete 08/29/20 19:36 Total Counted 100 08/29/20 19:36 Seg Neutrophils % 81.8 % (40.0-70.0) H 09/01/20 08:12 Lymphocytes % (Manual) 3.0 % (13.4-35.0) L 08/29/20 19:36 Monocytes % (Manual) 2.0 % (0.0-7.3) 08/29/20 19:36 Nucleated RBC % Not Reportable 08/29/20 19:36 Seg Neutrophils # 8.7 K/mm3 (1.8-7.7) H 09/01/20 08:12 Seg Neutrophils # Man 16.6 K/mm3 (1.8-7.7) H 08/29/20 19:36 Band Neutrophils # 0.0 K/mm3 08/29/20 19:36 Lymphocytes # (Manual) 0.5 K/mm3 (1.2-5.4) L 08/29/20 19:36 Abs React Lymphs (Man) 0.0 K/mm3 08/29/20 19:36 Monocytes # (Manual) 0.4 K/mm3 (0.0-0.8) 08/29/20 19:36 Eosinophils # (Manual) 0.0 K/mm3 (0.0-0.4) 08/29/20 19:36 Basophils # (Manual) 0.0 K/mm3 (0.0-0.1) 08/29/20 19:36 Metamyelocytes # 0.0 K/mm3 08/29/20 19:36 Myelocytes # 0.0 K/mm3 08/29/20 19:36 Promyelocytes # 0.0 K/mm3 08/29/20 19:36 Blast Cells # 0.0 K/mm3 08/29/20 19:36 WBC Morphology Not Reportable 08/29/20 19:36 Hypersegmented Neuts Not Reportable 08/29/20 19:36 Hyposegmented Neuts Not Reportable 08/29/20 19:36 Hypogranular Neuts Not Reportable 08/29/20 19:36 Smudge Cells Not Reportable 08/29/20 19:36 Toxic Granulation Not Reportable 08/29/20 19:36 Toxic Vacuolation Not Reportable 08/29/20 19:36 Dohle Bodies Not Reportable 08/29/20 19:36 Pelger-Huet Anomaly Not Reportable 08/29/20 19:36 Tristan Rods Not Reportable 08/29/20 19:36 Platelet Estimate Consistent w auto 08/29/20 19:36 Clumped Platelets Not Reportable 08/29/20 19:36 Plt Clumps, EDTA Not Reportable 08/29/20 19:36 Large Platelets Not Reportable 08/29/20 19:36 Giant Platelets Not Reportable 08/29/20 19:36 Platelet Satelliting Not Reportable 08/29/20 19:36 Plt Morphology Comment Not Reportable 08/29/20 19:36 RBC Morphology Normal 08/29/20 19:36 Dimorphic RBCs Not Reportable 08/29/20 19:36 Polychromasia Not Reportable 08/29/20 19:36 Hypochromasia Not Reportable 08/29/20 19:36 Poikilocytosis Not Reportable 08/29/20 19:36 Anisocytosis Not Reportable 08/29/20 19:36 Microcytosis Not Reportable 08/29/20 19:36 Macrocytosis Not Reportable 08/29/20 19:36 Spherocytes Not Reportable 08/29/20 19:36 Pappenheimer Bodies Not Reportable 08/29/20 19:36 Sickle Cells Not Reportable 08/29/20 19:36 Target Cells Not Reportable 08/29/20 19:36 Tear Drop Cells Not Reportable 08/29/20 19:36 Ovalocytes Not Reportable 08/29/20 19:36 Helmet Cells Not Reportable 08/29/20 19:36 [place] Bodies Not Reportable 08/29/20 19:36 [place] Rings Not Reportable 08/29/20 19:36 [place] Cells Not Reportable 08/29/20 19:36 Bite Cells Not Reportable 08/29/20 19:36 Crenated Cell Not Reportable 08/29/20 19:36 Elliptocytes Not Reportable 08/29/20 19:36 Acanthocytes (Spur) Not Reportable 08/29/20 19:36 Rouleaux Not Reportable 08/29/20 19:36 Hemoglobin C Crystals Not Reportable 08/29/20 19:36 Schistocytes Not Reportable 08/29/20 19:36 Malaria parasites Not Reportable 08/29/20 19:36 Anand Bodies Not Reportable 08/29/20 19:36 Hem Pathologist Commnt No 08/29/20 19:36 PT 18.0 Sec. (12.2-14.9) H 08/31/20 04:56 INR 1.50 (0.87-1.13) H 08/31/20 04:56 Sodium 138 mmol/L (137-145) 09/01/20 08:12 Potassium 3.7 mmol/L (3.6-5.0) 09/01/20 08:12 Chloride 107.9 mmol/L (98-107) H 09/01/20 08:12 Carbon Dioxide 22 mmol/L (22-30) 09/01/20 08:12 Anion Gap 12 mmol/L 09/01/20 08:12 BUN 6 mg/dL (7-17) L 09/01/20 08:12 Creatinine 0.7 mg/dL (0.6-1.2) 09/01/20 08:12 Estimated GFR > 60 ml/min 09/01/20 08:12 BUN/Creatinine Ratio 9 % 09/01/20 08:12 Glucose 97 mg/dL (65-100) 09/01/20 08:12 POC Glucose 87 mg/dL (70-105) 08/31/20 21:43 Calcium 7.9 mg/dL (8.4-10.2) L 09/01/20 08:12 Total Bilirubin 0.50 mg/dL (0.1-1.2) 08/29/20 20:28 AST 15 units/L (5-40) 08/29/20 20:28 ALT 13 units/L (7-56) 08/29/20 20:28 Alkaline Phosphatase 100 units/L (35-129) 08/29/20 20:28 Total Protein 7.5 g/dL (6.3-8.2) 08/29/20 20:28 Albumin 4.7 g/dL (3.9-5) 08/29/20 20:28 Albumin/Globulin Ratio 1.7 % 08/29/20 20:28 Lipase 16 units/L (13-60) 08/29/20 20:28 HCG, Qual Negative (Negative) 08/29/20 20:31 Julio/IV: Voiding Method Toilet Active Medications - Current Medications Current Medications: Generic Name Dose Route Start Last Admin Trade Name Freq PRN Reason Stop Dose Admin Acetaminophen 650 mg 08/29/20 23:23 08/31/20 23:09 Acetaminophen 325 Mg Tab PO 650 mg Q4H PRN Administration Pain MILD(1-3)/Fever >100.5/SKAGGS Famotidine 10 mg 08/31/20 16:30 09/01/20 22:11 Famotidine 10 Mg Tab PO 10 mg BID ALICIA Administration Hydromorphone HCl 1 mg 08/30/20 00:27 09/01/20 06:01 Hydromorphone 1 Mg/1 Ml Inj IV 1 mg Q3H PRN Administration Pain , Severe (7-10) Sodium Chloride 1,000 mls @ 125 mls/hr 08/30/20 00:30 09/02/20 01:24 Nacl 0.9% 1000 Ml IV 125 mls/hr DIRECT ALICIA Administration Piperacillin Sod/Tazobactam Sod 4.5 gm in 100 mls @ 200 mls/hr 08/30/20 06:00 09/02/20 05:38 Zosyn/Ns 4.5gm/100ml IV 200 mls/hr Q8HR ALICIA Administration Protocol Ondansetron HCl 4 mg 08/31/20 10:35 09/01/20 06:05 Ondansetron 4 Mg/2 Ml Inj IV 4 mg Q6H PRN Administration Nausea Oxycodone/Acetaminophen 2 tab 08/31/20 13:48 09/02/20 01:21 Oxycodone /Acetaminophen 5-325mg Tab PO 2 tab Q4H PRN Administration Pain, Moderate (4-6) Sodium Chloride 10 ml 08/29/20 23:23 Sodium Chloride 0.9% 10 Ml Flush Syringe IV PRN PRN LINE FLUSH Sodium Chloride 10 ml 08/30/20 08:00 09/01/20 22:11 Sodium Chloride 0.9% 10 Ml Flush Syringe IV 10 ml BID ALICIA Administration
[2020-09-02] MEDS: ONDANSETRON 4 MG/2 ML INJ IV PRN (10:13)
[2020-09-02] MEDS: FAMOTIDINE 10 MG TAB PO SCH (10:13)
[2020-09-02 10:19] LABS: Basophils # (Auto) 0.2 K/mm3 (0.0-0.1); Basophils % (Auto) 2.7 % (0.0-1.8); Eosinophils # (Auto) 0.1 K/mm3 (0.0-0.4); Eosinophils % (Auto) 2.1 % (0.0-4.3); Hematocrit 33.2 % (30.3-42.9); Hemoglobin 11.2 gm/dl (10.1-14.3); Lymphocytes # (Auto) 1.2 K/mm3 (1.2-5.4); Lymphocytes % (Auto) 17.9 % (13.4-35.0); Mean Corpuscular HGB Conc 34 % (30-34); Mean Corpuscular Volume 89 fl (79-97); Monocytes # (Auto) 0.5 K/mm3 (0.0-0.8); Platelet Count 303 K/mm3 (140-440); Red Blood Count 3.75 M/mm3 (3.65-5.03); Red Cell Distribution Width 14.6 % (13.2-15.2)
[2020-09-02 10:56] LABS: Blood Urea Nitrogen 4 mg/dL (7-17); Calcium 7.9 mg/dL (8.4-10.2); Hemolysis Index 0
[2020-09-02 11:00] LABS: BUN/Creatinine Ratio 7
--- NOTE | 2020-09-02 11:07 | Progress Note ---
Assessment and Plan - Patient Problems (1) Appendicitis Current Visit: Yes Status: Acute Qualifiers: Appendicitis type: acute appendicitis Acute appendicitis type: with localized peritonitis Appendicitis gangrene presence: without gangrene Appendicitis perforation presence: without perforation Appendicitis abscess presence: without abscess Qualified Code(s): K35.30 - Acute appendicitis with localized peritonitis, without perforation or gangrene Plan to address problem: 1) Okay for discharge from my perspective. 2) Oral antibiotics per ID 3) F/u in my office in 2 weeks 4) No lifting or straining 5) May shower 6) Narcotic of choice per Hospitalist (2) Acute perforated appendicitis Current Visit: Yes Status: Acute Subjective Date of service: 09/02/20 Patient Reports: Positive: no new complaints, feels better Objective Vital Signs - 12hr 09/01/20 09/02/20 09/02/20 23:05 05:08 07:58 Temperature 99.0 F 98.7 F 97.5 F L Pulse Rate 99 H 86 95 H Respiratory 18 20 16 Rate Blood Pressure 114/79 140/71 140/76 O2 Sat by Pulse 97 96 98 Oximetry - Abdomen soft, bowel sounds normal (Non-tender, incisions are clean.) - Labs 09/02/20 09:31 09/02/20 09:31 Diabetes panel 09/02/20 Range/Units 09:31 Sodium 139 (137-145) mmol/L Potassium 3.3 L (3.6-5.0) mmol/L Chloride 107.5 H (98-107) mmol/L Carbon Dioxide 23 (22-30) mmol/L BUN 4 L (7-17) mg/dL Creatinine 0.6 (0.6-1.2) mg/dL Glucose 91 (65-100) mg/dL Calcium 7.9 L (8.4-10.2) mg/dL Calcium panel 09/02/20 Range/Units 09:31 Calcium 7.9 L (8.4-10.2) mg/dL Pituitary panel 09/02/20 Range/Units 09:31 Sodium 139 (137-145) mmol/L Potassium 3.3 L (3.6-5.0) mmol/L Chloride 107.5 H (98-107) mmol/L Carbon Dioxide 23 (22-30) mmol/L BUN 4 L (7-17) mg/dL Creatinine 0.6 (0.6-1.2) mg/dL Glucose 91 (65-100) mg/dL Calcium 7.9 L (8.4-10.2) mg/dL Adrenal panel 09/02/20 Range/Units 09:31 Sodium 139 (137-145) mmol/L Potassium 3.3 L (3.6-5.0) mmol/L Chloride 107.5 H (98-107) mmol/L Carbon Dioxide 23 (22-30) mmol/L BUN 4 L (7-17) mg/dL Creatinine 0.6 (0.6-1.2) mg/dL Glucose 91 (65-100) mg/dL Calcium 7.9 L (8.4-10.2) mg/dL
--- NOTE | 2020-09-02 11:32 | Progress Note ---
Assessment and Plan Cultures: 08/30/2020 peritoneal fluid culture: In process A/P: 19-year-old female with history of asthma admitted to the hospital on 08/29/[address] abdomen revealed findings concerning for appendicitis as well as some colitis, labs were suggestive of sepsis: #Appendicitis, peritonitis: Status post laparoscopic appendectomy. Intra-op with infected peritoneal fluid. Passing gas, BM +. Surgical date: 08/30/2020 #Sepsis: due to above. Recs: -Continue Zosyn, f/u cultures -Given surgical source control, anticipate short course of antibiotics -Cultures remain negative, okay to discharge with Augmentin 875/125 mg every 12 hours and Levaquin 750 mg every 24 hours to complete until 09/06/2020 Infectious disease will sign off, please call with questions. Samra Fowler MD [facility] ([facility]) O: [phone] F: [phone] Subjective Date of service: 09/02/20 Interval history: Afebrile, normal white count. Peritoneal cultures negative. Objective - Exam Narrative Exam: Physical Exam: Constitutional: Alert, cooperative. No acute distress Head, Ears, Nose: Normocephalic, atraumatic. External ears, nose normal Eyes: Conjunctivae/corneas clear. No icterus. No ptosis. Neck: Supple, no meningeal signs Cardiovascular: S1, S2 normal. Respiratory: Good air entry, clear to auscultation bilaterally GI: Soft; bowel sounds normal. Lap incisions c/d/i Musculoskeletal: No pedal edema, no cyanosis. Skin: No rash or abscess Hem/Lymphatic: No palpable cervical or supraclavicular nodes. Psych: Mood ok. Affect normal Neurological: Awake, alert, oriented. No gross abnormality - Constitutional Vitals: Vital Signs Temp Pulse Resp BP Pulse Ox 97.5 F L 95 H 16 140/76 98 09/02/20 07:58 09/02/20 07:58 09/02/20 07:58 09/02/20 07:58 09/02/20 07:58 Temperature -Last 24 Hours Temperature 97.5 F Temperature 98.7 F Temperature 99.0 F Temperature 98.0 F Temperature 97.8 F Temperature 98.2 F - Labs CBC & Chem 7: 09/02/20 09:31 09/02/20 09:31 Labs: Abnormal lab results 09/02/20 09/02/20 Range/Units 09:31 09:31 [place] % (Auto) 8.0 H (0.0-7.3) % Baso % (Auto) 2.7 H (0.0-1.8) % Baso # (Auto) 0.2 H (0.0-0.1) K/mm3 Potassium 3.3 L (3.6-5.0) mmol/L Chloride 107.5 H (98-107) mmol/L BUN 4 L (7-17) mg/dL Calcium 7.9 L (8.4-10.2) mg/dL
[2020-09-02 12:32] VITALS: BP 141/85
--- NOTE | 2020-09-02 13:34 | Discharge Summary ---
Providers - Providers Date of Admission: 08/29/20 23:23 Date of discharge: 09/02/20 Attending physician: PALLAVI DUNAWAY MD 08/29/20 23:20 Consult to Physician [CONS] Stat Comment: ANGELLA Rios spoke with Dr. Walker @ [phone] Consulting Provider: CORY WALKER Physician Instructions: Reason For Exam: appendicitis/colitis 08/31/20 07:54 Consult to Physician [CONS] Routine Comment: Consulting Provider: AINSLEY MARTÍNEZ Physician Instructions: Reason For Exam: Appendicitis, infected peritoneal fluid Primary care physician: GLASS LATHE OPERATOR Hospitalization Reason for admission: Ruptured appendicitis, sepsis Condition: Fair Procedures: Appendectomy Hospital course: 19 year old while female seen in the ER complaining of abdominal pain. Abdominal pain was said to have started early this morning. Pain was more in the epigastric region initially and later radiated to the right lower abdomen. No known relieving or exacerbating factor. She denies any fever, no chills.No chest pain or shortness of breath. Denies any hematuria and dysuria. Work -up in the Emergency room :The appendix is abnormal in appearance. It is enlarged and fluid-filled and there are appendicoliths. There is some mild stranding in the fat adjacent to the appendix. The appearance is characteristic of appendicitis. In addition, there is wall thickening noted in the right transverse left proximal sigmoid colon suggesting colitis. Labs reveals leucocytosis of 17.5. Patient is being admitted for appendicitis. General surgeon - Dr. Walker was notified by the ER physician. Hospital course (1) Appendicitis Current Visit: Yes Status: Acute Qualifiers: Appendicitis type: acute appendicitis Acute appendicitis type: with localized peritonitis Appendicitis gangrene presence: without gangrene Appendicitis perforation presence: without perforation Appendicitis abscess presence: without abscess Qualified Code(s): K35.30 - Acute appendicitis with localized peritonitis, without perforation or gangrene Plan to address problem: Patient made NPO . Placed on empiric IV antibiotics. Consult placed to General surgeon for evaluation. Dr.Ronald Walker notified. Sepsis due to appendicitis -Evidenced by fever, tachycardia and leukocytosis -Patient is on Zosyn (2) Abdominal pain Current Visit: Yes Status: Acute Qualifiers: Abdominal location: epigastric Qualified Code(s): R10.13 - Epigastric pain Plan to address problem: Secondary to the Appendicits. Continue on IV analgesic medication (3) Nausea & vomiting Current Visit: Yes Status: Acute Qualifiers: Vomiting type: unspecified Vomiting Intractability: non-intractable Qualified Code(s): R11.2 - Nausea with vomiting, unspecified Plan to address problem: Patient placed on IV Zofran as needed. (4) DVT prophylaxis Current Visit: Yes Status: Acute Plan to address problem: Patient placed on sequential compression device (5) Full code status Current Visit: Yes Status: Acute Plan to address problem: Patient is Full code 08/30/2020 -Patient is on IV Zosyn for appendicitis and sepsis -Dr. Walker consulted in the emergency department -We will going to follow with general surgery -Symptomatic treatment for abdominal pain nausea and vomiting, until definitive treatment by general surgery -Patient had appendectomy this morning by Dr. Walker and his note stated that patient has infected peritoneal fluid, culture and sensitivity sent to lab. 08/31/2020 -Status post appendectomy, infected peritoneal fluid. ID consulted -Patient had fever and leukocytosis -Continue with IV antibiotics for now 09/01/2020 -Sepsis due to appendicitis, status post appendectomy effective peritoneal fluid -Leukocytosis resolved -Was seen by ID and recommended to continue Zosyn for now, patient is a surgical infection he recommends short-term antibiotics -Surgery is following the patient -Patient is on clear liquid diet 09/02/20 -Patient's condition is improving, pending anaerobic culture -Continue with Zosyn -Advance diet as tolerated -Disposition is per surgery recommendation. Patient does not have any fever overnight, patient was improving, patient's diet advanced. Have discussed with general surgery and cleared for discharge. Discussed with ID and recommend to discharge the patient with p.o. Levaquin and Augmentin for 4 more days. Patient is improving and discharged home. Patient follow with Dr. Walker in the office in 2 weeks. Disposition: TO HOME OR SELFCARE Time spent for discharge: 32 minutes - Discharge Diagnoses (1) Sepsis Status: Acute (2) Abdominal pain Status: Acute Qualifiers: Abdominal location: epigastric Qualified Code(s): R10.13 - Epigastric pain (3) Acute perforated appendicitis Status: Acute Core Measure Documentation - Palliative Care Palliative Care/ Comfort Measures: Not Applicable - Core Measures Any of the following diagnoses?: none Exam - Physical Exam Narrative exam: Not in cardiopulmonary distress. The patient appeared well nourished and normally developed. Vital signs as documented. Head exam is unremarkable. No scleral icterus . Neck is without jugular venous distension, thyromegaly, or carotid bruits. Lungs are clear to auscultation. Cardiac exam reveals regular rate and Rhythm. Abdominal exam reveals right lower quadrant pain, no guarding or rigidity. Extremities are nonedematous and both femoral and pedal pulses are normal. CUFF SETTER: Alert and oriented 3. No focal weakness. - Constitutional Vitals: Temp Pulse Resp BP Pulse Ox 98.5 F 81 18 141/85 97 09/02/20 12:07 09/02/20 12:07 09/02/20 12:07 09/02/20 12:07 09/02/20 12:07 Plan Activity: no restrictions Weight Bearing Status: Full Weight Bearing Diet: regular Follow up with: PRIMARY CAREMD [Primary Care Provider] - 3-5 Days CORY WALKER MD [Staff Physician] - 14 Days Prescriptions: Amoxicillin/K Clav Tab [Augmentin 875 mg] 1 tab PO Q12HR #8 tab levoFLOXacin [Levaquin] 750 mg PO QDAY #4 tablet Oxycodone HCl/Acetaminophen [Percocet 7.5/325 mg] 1 each PO Q6HR PRN #14 tablet PRN Reason: Pain
== END 2020-09-02 15:53 | disposition home or self-care (01) | DRG 853 ==
LOC: ED 18:19 → 3B 23:23
PROVIDERS: ADMIT Internal Medicine Geriatric Medicine; ATTEND Internal Medicine
PROC: 0DTJ4ZZ Resection of Appendix, Percutaneous Endoscopic Approach (ICD-10-PCS; principal; 2020-08-30)
DX: A41.81 Sepsis due to Enterococcus (principal); K35.33 Acute appendicitis with perforation, localized peritonitis, and gangrene, with abscess; E66.9 Obesity, unspecified; F12.90 Cannabis use, unspecified, uncomplicated; D72.829 Elevated white blood cell count, unspecified; J45.909 Unspecified asthma, uncomplicated; K52.9 Noninfective gastroenteritis and colitis, unspecified; Z68.41 Body mass index [BMI] 40.0-44.9, adult; Z79.899 Other long term (current) drug therapy; Z79.891 Long term (current) use of opiate analgesic; Z79.01 Long term (current) use of anticoagulants
CPT/HCPCS: 36415; 74177; 80048; 80053; 82962; 83690; 84703; 85007; 85025; 85610; 87075; 87116; 88304; 96361; 96365; 96372; 96375; G0378; A4217; J1100; J1170; J2001; J2060; J2250; J2270; J2370; J2405; J2543; J2704; J2710; J3010; J3490; J7030; Q9967